=== PATIENT | female | born 1950 | race Caucasian/White ===

== ENCOUNTER 2019-12-29 09:45 | Outpatient (REF) | payer MEDICARE, SELFPAY ==
--- NOTE | 2019-12-29 | MM_ITS ---
EXAMINATION: MM DIAGNOSTIC DIGITAL BREAST TOMOSYNTHESIS, BILATERAL US DIAGNOSTIC ULTRASOUND BREAST, RIGHT CLINICAL INFORMATION: 69-year-old with lateral right breast pain for 2 to 3 weeks. No palpable mass or discharge. Prior outside mammography from [facility] currently unavailable The lifetime risk of breast cancer based on the Tyrer-Cuzick Model is 3%. COMPARISON: None. TECHNIQUE: Digital breast tomosynthesis is performed in both the craniocaudal and mediolateral oblique views along with computer-aided detection (CAD). Synthesized 2D images are generated from the tomosynthesis. Ultrasound right breast is targeted to the area of clinical concern outer right breast 6:00 through 12:00 position. Grayscale imaging and color Doppler are performed without and with harmonics. FINDINGS: The breasts are almost entirely fatty (ACR BI-RADS breast composition Category a). There is no mass or architectural abnormality. No skin thickening or coarsening of the Nahun's ligaments. There are benign-appearing regional calcifications in each breast, more numerous on the right. The axilla are unremarkable. Ultrasound demonstrates no cystic or solid mass, architectural abnormality, or focal duct ectasia. No skin thickening or edema tracking in the soft tissue planes. Results are discussed with the patient at time of visit. MM/MM diagnostic mammo BI IMPRESSION: 1. No mammographic evidence of malignancy or inflammatory changes. 2. Unremarkable targeted right breast ultrasound. ASSESSMENT: BI-RADS 2: Benign RECOMMENDATION: 1. Patient's right breast pain may be managed based on the clinical impression 2. Radiology department staff will attempt to retrieve prior outside mammography to allow for comparison in an addendum report. 3. Otherwise, routine annual screening mammography. This patient's information was entered into a reminder system with a target due date for their next mammogram.
== END 2019-12-29 09:46 | disposition home or self-care (01) ==
LOC: HO.MAMMO 09:45
PROVIDERS: PCP Internal Medicine; Visit Provider Internal Medicine
DX: N63.11 Unspecified lump in the right breast, upper outer quadrant (principal)
CPT/HCPCS: 76642; 77066

== ENCOUNTER 2023-12-25 08:08 | Outpatient (REF) | payer OTHER, SELFPAY ==
--- NOTE | ~2023-12-25 | CT_ITS ---
EXAMINATION: CT HEAD WITHOUT CONTRAST CLINICAL INFORMATION: Mild cognitive impairment COMPARISON: None available. TECHNIQUE: Contiguous axial imaging was performed from the skull base to vertex without intravenous administration of contrast. This CT examination was performed using dose optimization techniques as appropriate, variously including the following: *Automated exposure control *Adjustment of mA and/or kV according to patient size (this includes techniques or standardized protocols for targeted exams where dose is matched to indication/reason for exam; i.e. extremities or head) *Use of iterative reconstruction technique DLP: 753 mGy-cm FINDINGS: There is mild prominence to the sulci and ventricles. No intra or extra-axial fluid collection or hemorrhage, mass, or mass effect. Calvarium intact. CT/CT head/brain wo IV con IMPRESSION: No acute intracranial pathology. Electronically signed by: Nitin Garsia MD 12/25/2023 11:26 AM [facility]
== END 2023-12-25 08:09 | disposition home or self-care (01) ==
LOC: HO.CT 08:08
PROVIDERS: PCP Internal Medicine; Visit Provider Psychiatry & Neurology Neurology
DX: G31.84 Mild cognitive impairment of uncertain or unknown etiology (principal)
CPT/HCPCS: 70450

== ENCOUNTER 2024-05-29 11:13 | Outpatient (REF) | payer OTHER, SELFPAY ==
--- NOTE | ~2024-05-29 | XR_ITS ---
EXAMINATION: XR CHEST 4 OR MORE VIEWS HISTORY: PAIN COMPARISON: There are no prior studies for comparison. FINDINGS: PA, lateral, and bilateral oblique views of the chest are submitted. The lungs are expanded and clear. There is no pleural effusion, pneumothorax, or pulmonary vascular congestion. The heart is normal in size. The aorta is calcified. There is degenerative disc disease of the spine. XR/XR chest 4 views IMPRESSION: Clear lungs. Electronically signed by: Redd Porter MD 05/29/2024 02:57 PM EDT
--- OUTSIDE RECORDS SUMMARY | 2024-05-29 13:54 | XMS_ITS | Clinical Summary ---
Author Organization [facility] [address] [facility] Address [address] [place] [address] Phone Care Team Providers Care Educational Audiologist Name Role Phone Cruz Huynh MD Primary Care Provider [phone] Allergies Active Allergy Reactions Criticality Noted Date Comments Oxycodone 11/01/2016 itchy Oxycodone-Acetaminophen 09/23/2021 Medications diphenhydrAMINE (BENADRYL) 25 mg tablet Take 1 Tablet by mouth at bedtime. Active atorvastatin (LIPITOR) 40 mg tablet Take 1 Tablet by mouth at bedtime. 07/16/19 24 Active diclofenac (VOLTAREN) 1 % topical gel Apply 1 g topically 2 times daily as needed (pain). 06/15/19 24 Active metFORMIN (GLUCOPHAGE) 500 mg tablet Take 1 tablet (500 mg total) by mouth 2 (two) times a day with meals. 05/09/19 24 Active blood-glucose meter kit 1 Each by Does not apply route 2 times daily. 12/19/19 23 Active cholecalciferol (VITAMIN D-3) 50 mcg (2,000 unit) capsule Take 1 capsule (2,000 Units total) by mouth 1 (one) time each day. 06/02/19 23 Active Autolet lancing device Use daily to check blood sugar as directed 06/01/19 23 Active blood glucose control, normal (OneTouch Ultra Control) solution Use to check FSG twice a day 06/01/19 23 Active RICKY SHANKS LANCETS [facility] Use to check FSG twice a day 06/01/19 23 Active fluticasone propionate (FLONASE) 50 mcg/actuation nasal spray 1-2 Sprays by Each Nare route daily. Active aspirin 81 mg chewable tablet Chew 1 tablet (81 mg total) 1 (one) time each day. 03/21/19 19 Active coenzyme Q-10 100 mg capsule Take 200 mg by mouth daily. Active predniSONE (DELTASONE) 20 mg tablet Sig: Take 1 tablet by mouth twice daily for 5 days. Sent to pharmacy as: predniSONE 20 MG Oral Tablet (DELTASONE) Active tirzepatide (MOUNJARO) 2.5 mg/0.5 mL injection Sig - Route: Inject 2.5 mg into the skin once a week. - Subcutaneous Sent to pharmacy as: Mounjaro 2.5 MG/0.5ML Subcutaneous Solution Pen-injector (Tirzepatide) Active meloxicam (MOBIC) 15 mg tablet Sig - Route: Take 1 Tablet by mouth daily. - Oral Sent to pharmacy as: Meloxicam 15 MG Oral Tablet Active gabapentin (NEURONTIN) 300 mg capsuleIndicati ons:Fibromyalgi a,Intercostal neuropathy TAKE 1 CAPSULE BY MOUTH EVERYDAY AT BEDTIME 90 capsule 3 12/27/19 24 Active senna-docusate (PERICOLACE) 8.6-50 mg per tabletIndicatio ns:Constipation , unspecified constipation type Take 2 tablets by mouth 1 (one) time each day. 60 each 12/27/19 24 2024 Active polycarbophil (FiberCon) 625 mg tabletIndicatio ns:Constipation , unspecified constipation type Take 1 tablet (625 mg total) by mouth 1 (one) time each day. 30 each 12/27/19 24 2024 Active albuterol 2.5 mg /3 mL (0.083 %) nebulizer solution Take 3 mL (2.5 mg total) by nebulization every 6 (six) hours if needed. 06/15/19 22 Active albuterol HFA (ProAir HFA) 90 mcg/actuation inhaler 04/23/19 13 Active alendronate (FOSAMAX) 70 mg tablet alendronate 70 mg tablet Active amitriptyline (ELAVIL) 25 mg tablet 1 tablet (25 mg total). 04/16/19 13 Active amitriptyline (ELAVIL) 10 mg tablet Take 1 tablet (10 mg total) by mouth. 02/10/20 14 Active budesonide-form oteroL (SYMBICORT) 160-4.5 mcg/actuation inhaler Inhale 2 puffs by mouth 2 (two) times a day. 03/03/19 22 Active amLODIPine (NORVASC) 5 mg tablet Take 1 tablet (5 mg total) by mouth daily. 09/06/19 22 Active budesonide-form oteroL (Symbicort) 80-4.5 mcg/actuation inhaler Inhale 2 puffs by mouth 2 (two) times a day. 10/11/19 20 Active cetirizine (ZyrTEC) 10 mg tablet Take 1 tablet (10 mg total) by mouth daily. 01/05/20 22 Active ergocalciferol (VITAMIN D-2) 1,250 mcg (50,000 unit) capsule Take 1,000 Units by mouth. Active influenza trivalent, 65 years and up, (Fluzone High-Dose Triv 24-25) (PF) vaccine TO BE ADMINISTERED BY PHARMACIST FOR IMMUNIZATION 10/29/19 17 Active lovastatin (MEVACOR) 40 mg tablet Take 1 tablet (40 mg total) by mouth. 02/10/20 14 Active meclizine (ANTIVERT) 25 mg tablet Take 1 tablet (25 mg total) by mouth. 05/16/19 15 Active melatonin 5 mg tablet Take 1 tablet (5 mg total) by mouth. 10/31/19 20 Active montelukast (SINGULAIR) 10 mg tablet Take 1 tablet (10 mg total) by mouth. 12/03/19 20 Active omeprazole (PriLOSEC) [address] capsule Take 1 capsule (20 mg total) by mouth 1 (one) time each day in the morning. 01/05/20 22 Active omeprazole 20 mg tablet,disinteg rat, delay rel Take by mouth. Active ondansetron (ZOFRAN) 4 mg/5 mL solution TAKE 5ML BY MOUTH EVERY 8 HOURS NEEDED FOR NAUSEA 11/29/19 24 Active pantoprazole (PROTONIX) 40 mg EC tablet Take 1 tablet (40 mg total) by mouth 1 (one) time each day. 11/29/19 24 Active triamcinolone (KENALOG) 0.025 % cream Apply 0.25 Applications topically 2 (two) times a day. 03/27/19 24 Active triamcinolone (KENALOG) 0.1 % cream TAKE 1 APPLICATION (TOPICAL) 2 TIMES PER DAY (ITCHING) FOR 14 DAYS DO NOT USE ON GROIN OR FACE. 03/27/19 24 Active coenzyme H57-efygann E 100-5 mg-unit capsule Take 200 mg by mouth. Active blood-glucose meter kit 1 each 2 (two) times a day before meals. One touch 1 kit 1 02/15/19 25 Active ibuprofen (ADVIL,MOTRIN) 600 mg tablet TAKE 1 TABLET BY MOUTH EVERY 8 HOURS IF NEEDED FOR MILD PAIN. 90 tablet 2 03/31/19 25 Active hydrOXYzine HCL (ATARAX) 10 mg tabletIndicatio ns:Pruritus, unspecified TAKE 1 TABLET BY MOUTH THREE TIMES A DAY 90 tablet 1 03/31/19 25 Active OneTouch Ultra Test test strip Check sugar 2 times daily 100 strip 3 04/04/19 25 Active lidocaine (XYLOCAINE) 5 % ointmentIndicat ions:Chronic right-sided thoracic back pain Apply pea-sized amount 3 times a day on the back spasm area as needed for pain 35.44 g 3 04/03/19 25 Active valsartan (DIOVAN) 320 mg tabletIndicatio ns:Essential (primary) hypertension TAKE 1 TABLET BY MOUTH EVERY DAY 90 tablet 1 05/07/19 25 Active tiZANidine (ZANAFLEX) 4 mg tablet TAKE 1 TABLET (4 MG TOTAL) BY MOUTH 1 (ONE) TIME EACH DAY IF NEEDED FOR MUSCLE SPASMS. 30 tablet 1 05/29/19 25 Active valsartan (DIOVAN) 320 mg tabletIndicatio ns:Essential (primary) hypertension TAKE 1 TABLET BY MOUTH EVERY DAY 90 tablet 1 12/24/19 24 2024 Discontinued linaCLOtide (Linzess) 145 mcg capsuleIndicati ons:Slow transit constipation Take 1 capsule (145 mcg total) by mouth 1 (one) time each day. 30 each 1 03/20/19 25 2024 tiZANidine (ZANAFLEX) 4 mg tablet Take 1 tablet (4 mg total) by mouth 1 (one) time each day if needed for muscle spasms. 30 tablet 1 04/03/19 25 2024 Discontinued Active Problems Problem Noted Date Diagnosed Date 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 Hepatic steatosis 09/28/2022 Overview (11/16/2023): Incidental finding on CT abdomen pelvis done at [facility] on 09/22/2022. Chest pain 05/04/2021 Overview (11/16/2023): [facility] ER 03/14/21-03/15/21 Last Assessment & Plan: The patient has a chronic history of episodes of atypical chest discomfort. The patient describes infrequent episodes of chest discomfort that are described as a chest soreness sensation. Her symptoms last for several days per episode. She refers that her symptoms worsens with certain upper extremity movements or movements of her torso. She denies any chest pain that is induced or worsened by exertion. She denies any exertional dyspnea. She denies any exertional fatigue. On today's visit, I was able to reproduce the patient's chest discomfort with palpation of the anterior chest wall. Previous cardiac testing did not show any significant cardiac etiology to explain her episodes of chest discomfort. Specifically, her echocardiogram in February 2021 showed a normal biventricular function and no significant valve disease. Stress echocardiogram in May 2021 did not show any EKG or echocardiographic evidence of exercise-induced cardiac ischemia. Also, cardiac CT scan done in October 2021 did not show any significant coronary artery disease. As such, given the description of her symptoms as well as her previous cardiac test results, it is unlikely that the patient's episodes of chest discomfort are cardiac in nature. In fact, given the description of her symptoms it is likely that the patient's chest discomfort episodes are musculoskeletal in nature. Therefore, no need for any additional cardiac testing at this time. The patient was instructed to follow-up with her primary care physician regarding the management of her atypical episodes of chest discomfort that are likely musculoskeletal in nature. Shoulder impingement, right 02/04/2019 DM2 (diabetes mellitus, type 2) (CMS/HCC V24, CM S/HCC V28) 05/26/2015 Radiculitis, cervical 07/03/2012 Diverticulosis of colon 03/04/2010 Overview (11/16/2023): Dr. Bell, colonosocopy in 11/03/2008. Told repat in 5 years due to fhx of colon neoplasia Osteopenia 03/04/2010 Overview (11/16/2023): Bone density 03/2009 Vitamin D insufficiency 02/22/2010 Overview (11/16/2023): Bone density done in 03/2009: osteopenia Degenerative joint disease (DJD) of lumbar spine 01/05/2010 Overview (11/16/2023): MRI thoracic 09/18/2008: T6-T7 small righ paracentral herniated disc without stenosis or cord compression HTN (hypertension), benign 01/05/2010 Overview (11/16/2023): Last Assessment & Plan: The patient has a history of arterial hypertension. The patient's blood pressure today was noted to be well controlled. We'll continue the current antihypertensive medication regimen. Hyperlipidemia with target LDL less than 130 Overview (11/16/2023): IMO update Knee pain 01/05/2010 Encounters Date Type Department Care Team Description 04/03/2024 3:00 PM EST Office Visit Internal Medicine - [place] [address] [facility] [address] [place] [id number] Cruz Huynh MD Chronic right-sided thoracic back pain (Primary Dx) 03/27/2024 Telephone Gastroenterology - [address] [place] [phone] Bertha Youngblood, [employer] Information Needed 03/21/2024 Telephone Gastroenterology - [address] [address] Drew Juan MD 03/20/2024 Telephone Gastroenterology - [address] [place] [address] Drew Juan MD 03/06/2024 2:40 PM EST Office Visit Gastroenterology - [address] [place] [address] Bertha Youngblood, [employer] Slow transit constipation (Primary Dx); Right upper quadrant abdominal pain from Last 3 Months Immunizations Name Administration Dates Next Due Influenza Quadravalent, 0.5m l (Fluad) 65yo and older 10/11/2022 Influenza Quadravalent, 0.5m l (Fluzone High-dose) 65yo and older 11/04/2021 Influenza trivalent, 0.5mL ( Fluad) 65yo and older 10/07/2018 Influenza trivalent, 0.5mL ( Fluzone High-dose) 65yo and older 11/15/2023,11/20/2017,10/28/2016,10/25 Influenza trivalent, with pr eservative (Fluzone; Afluria) 6mo and older 11/23/2009,11/05/2009 Influenza, Unspecified 10/22/2022,10/07/2018 Pneumococcal conjugate 13 va lent (Prevnar 13, PCV13) 2mo and older 10/06/2015 Pneumococcal polysaccharide 23 valent (Pneumovax 23) 2yo and older 12/06/2016 Tdap Tetanus diptheria acell ular pertussis (Boostrix; Adacel) 7yo and older 01/21/2019 Surgical History Surgery Date Site/Laterality Comments BREAST REDUCTION PROCEDURE: MD BREAST REDUCTION KNEE SURGERY PROCEDURE: HISTORICAL KNEE SURGERY; COMMENT: bilateral - cartilage injury BACK SURGERY 2007 PROCEDURE: HISTORICAL BACK SURGERY; COMMENT: fusion SHOULDER SURGERY 2001 PROCEDURE: HISTORICAL SHOULDER SURGERY; COMMENT: left - cuff repair SHOULDER SURGERY 03/23/2017 Right PROCEDURE: HISTORICAL SHOULDER SURGERY Medical History Medical History Date Comments HTN (hypertension), benign DX:HT N (hypertension), benign Historical Medical DX DX:Hyperli pidemia LDL goal < 130 Back pain 01/05/2010 DX:Back pain Diverticulosis of colon 03/04/2010 DX:Diver ticulosis of colon Impaired glucose tolerance 03/04/2010 DX:Im paired glucose tolerance Knee pain 01/05/2010 DX:Knee pain Osteopenia 03/04/2010 DX:Osteopenia DM (diabetes mellitus), type 2, uncontrolled 05/26/2015 DX:DM (diabetes mellitus), t ype 2, uncontrolled DM2 (diabetes mellitus, type 2) ([facility] V24, [facility] V28) 05/26/2015 DX:DM2 (diabetes mellitus, type 2) ([facility]) Mild intermittent asthma 02/13/2019 DX:Mild intermittent asthma Osteoporosis DX:Osteoporosis 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 DX:DJD of right shoulder Family History Medical History Relation Name Comments Autoimmune disease Neg Hx Breast cancer Neg Hx Colon cancer Neg Hx Coronary artery disease Neg Hx Diabetes Neg Hx Heart attack Neg Hx Heart failure Neg Hx Hyperlipidemia Neg Hx Hypertension Neg Hx Mental illness Neg Hx Prostate cancer Neg Hx Sleep apnea Neg Hx Thyroid disease Neg Hx Relation Name Status Comments Father Mother Alive unknown health Social History Tobacco Use Types Packs/Day Years Used Date Smoking Tobacco: Never Smokeless Tobacco: Never Alcohol Use Standard Drinks/Week Comments Not Currently 0 (1 standard drink = 0.6 oz pur e alcohol) Comments Unknown Sex and Gender Information Value Date Recorded Sex Assigned at Female 12/12/2023 3:18 PM EDT Legal Sex Female 3:57 AM EST Gender Identity Female 12/12/2023 3:18 PM EDT Sexual Orientation Straight 12/12/2023 3: 18 PM EDT Obstetrics History Last Filed Vital Signs Vital Sign Reading Time Taken Comments Blood Pressure 122/72 04/03/2024 3:09 PM EST Pulse 90 04/03/2024 3:09 PM EST Temperature 36.3 ??C (97.3 ??F) 04/03/2024 3:09 PM ES T Respiratory Rate - - Oxygen Saturation 98% 04/03/2024 3:09 PM EST Inhaled Oxygen Concentration - - Weight 66.5 kg (146 lb 9.6 oz) 04/03/2024 3:09 P M EST Height 152.4 cm (5') 03/06/2024 2:37 PM EST Body Mass Index 28.63 03/06/2024 2:37 PM EST Plan of Treatment Health Maintenance Due Date Last Done Comments Diabetes: Annual Retina Eye Exam 1960 Zoster Vaccines (1 of 2) 2000 RSV Immunization Adult Patients (1 - Risk 60-74 years 1-dose series) 2010 Depression Screening 01/21/2022 Falls Risk Assessment 01/21/2022 Social Influencers of Health Screening 01/21/2022 Diabetes: Annual Urine Albumin-Creatinine Ratio (uACR) 06/01/2023 05/31/2022 Medicare Annual Wellness Visit 08/31/2023 08/30/2022 COVID-19 Vaccine ( season) 2023 02/23/2021, 05/06/2020, 04/08/2020 Diabetes: Annual Foot Exam 03/21/2024 03/21/2023 Diabetes: Blood Sugar Control Test (HGBA1C) 05/08/2024 11/09/2023, 11/09/2023, 06/15/2023 Colorectal Cancer Screening: Colonoscopy 09/07/2024 09/08/2019 Diabetes: Annual GFR (Glomerular Filtration Rate) 11/08/2024 11/09/2023, 11/09/2023, 06/15/2023 Hypertension/CHF/CAD Annual BMP Blood Test 11/08/2024 11/09/2023, 11/09/2023, 06/15/2023 Breast Cancer Screening 08/08/2025 08/09/19 24, 07/19/2022, 2021, Additional history exists Cholesterol Screening (Lipid Panel) 11/08/2028 11/09/2023, 11/09/2023, 06/15/2023, Additional history exists DTaP,Tdap,and Td Vaccines (2 - Td or Tdap) 01/21/2029 01/21/2019 Osteoporosis Screening (Bone Density Screening) 08/08/2033 08/09/2023, 08/09/2023, 01/25/2021 Hepatitis C Screening Completed 01/01/2016 Pneumococcal Vaccine: 50+ Years Completed 12/06/2016, 10/06/2015 Influenza Vaccine Completed 11/15/2023, , 10/11/2022, Additional history exists HIB Vaccines Aged Out No longer eligi ble based on patient's age to complete this topic HPV Vaccines Aged Out No longer eligi ble based on patient's age to complete this topic Hepatitis A Vaccines Aged Out No long er eligible based on patient's age to complete this topic Hepatitis B Vaccines Aged Out No long er eligible based on patient's age to complete this topic IPV Vaccines Aged Out No longer eligi ble based on patient's age to complete this topic MMR Vaccines Aged Out No longer eligi ble based on patient's age to complete this topic Meningococcal ACWY Vaccine Aged Out N o longer eligible based on patient's age to complete this topic Meningococcal B Vaccine Aged Out No l onger eligible based on patient's age to complete this topic RSV Immunization Patients Under 20 months Aged Out No longer eligible based on patient's age to complete this topic Varicella Vaccines Aged Out No longer eligible based on patient's age to complete this topic Procedures Procedure Name Priority Date/Time Associated Diagnosis Comments ANNUAL BMP BLOOD TEST Routine 11/09/2023 HEMOGLOBIN A1C Routine 11/09/2023 LIPID PANEL Routine 11/09/2023 [facility] SCREENING DIGITAL Routine 08/09/2023 10:10 AM EDT Encounter for screening mammogram for malignant neoplasm of breast [facility] DEXA AXIAL SKELETON Routine 08/09/2023 9:58 AM EDT Other specified disorders of bone density and structure, other site DIABETES FOOT EXAM Routine 03/21/2023 URINE ALBUMIN CREATININE RATIO Routine 05/31/2022 COLONOSCOPY Routine 09/08/2019 HEPATITIS C SCREENING Routine 01/01/2016 from Last 3 Months or Most Recently Relevant to Health Maintenance Results * Annual BMP Blood Test (11/09/2023) Annual BMP Blood Test abstracted us Historical Provider HEALTH MAINTENANCE Final Result * (ABNORMAL) Hemoglobin A1c (11/09/2023) Hemoglobin A1C 6.7(A) <=6.5 % Blood Venous blood specimen / Unknown us Historical Provider LAB BLOOD ORDERABLES Madhavi l Result * Lipid panel (11/09/2023) LDL/HDL Ratio 3 0 - 4 Triglycerides 146 0 - 150 mg/dL Cholesterol 189 0 - 200 mg/dL HDL 61 >=40 mg/dL LDL Cholesterol 99 0 - 100 mg/dL Blood Venous blood specimen / Unknown us Historical Provider LAB BLOOD ORDERABLES Madhavi louis Result * [facility] SCREENING DIGITAL (08/09/2023 10:10 AM EDT) Anatomical Region Laterality Modality Mammography 08/09/2023 8:24 AM EDT Narrative 08/09/2023 10:10 AM EDT [facility] Diagnostic Imaging Department [address] [place] [address] Patient: ??SAMANTHA MCKINLEY ?/Age/Sex: 1950 - 73 - F Unit#: ??[id number] ? Location/Status: ??SPDIMAM/REG CLI ? Mnemonic/Ordering Site: ??DIGSC/SPMAM Ordering Physician: ??CRUZ HUYNH MD [facility] Screening Digital - 08/09/23 - 839 Report Status:Signed EXAM: [facility] Screening Digital EXAM DATE AND TIME: 08/09/2023 8:41 AM HISTORY: ??Screening. Prior left breast biopsy and bilateral reduction mammoplasty. COMPARISON: ??07/19/22, 03/02/21, 08/21/18 TECHNIQUE: Bilateral digital breast tomosynthesis was performed in the CC and MLO projections. Computer aided detection with [employer] 3D 3.1 was employed. TISSUE DENSITY: a. The breasts are almost entirely fatty. FINDINGS: Reduction mammoplasty sequelae are again noted, including numerous small benign rim calcifications close to the skin line inferiorly. No suspicious masses, grouped microcalcifications, or developing architectural distortion are seen. The vascularity is unremarkable. IMPRESSION: Stable mammographic appearance of the breasts. ??No evidence of malignancy is seen. A negative mammogram in the presence of a clinically suspicious palpable abnormality does not preclude the possibility of malignancy or alter the indications for biopsy. BI-RADS: ??Category 2: Benign RECOMMENDATION(S): 1: Routine screening mammogram BILATERAL in 1 year. Dictating Physician: ??CYN BAPTISTE MD Electronically Signed by: ??CYN BAPTISTE MD Dic Date/Time: ??08/09/23 1009 Sign date/Time: ??08/09/23 1010 Procedure Note Cyn Baptiste MD - 11/28/2023 [facility] Diagnostic Imaging Department [address] [place] [id number] Patient: SAMANTHA MCKINLEYO.B./Age/Sex: 1950 - 73 - F Unit#: [id number] Location/Status: [facility]/REG CLI Mnemonic/Ordering Site: [facility] Ordering Physician: CRUZ HUYNH MD [facility] Screening Digital - 08/09/23 - 0840 Report Status:Signed EXAM: [facility] Screening Digital EXAM DATE AND TIME: 08/09/2023 8:41 AM HISTORY: Screening. Prior left breast biopsy and bilateral reduction mammoplasty. COMPARISON: 07/19/22, 03/02/21, 08/21/18 TECHNIQUE: Bilateral digital breast tomosynthesis was performed in the CCand MLO projections. Computer aided detection with [employer] 3D 3.1was employed. TISSUE DENSITY: a. The breasts are almost entirely fatty. FINDINGS: Reduction mammoplasty sequelae are again noted, including numerous smallbenign rim calcifications close to the skin line inferiorly. No suspiciousmasses, grouped microcalcifications, or developing architectural distortion areseen. The vascularity is unremarkable. IMPRESSION: Stable mammographic appearance of the breasts. No evidence of malignancyis seen. A negative mammogram in the presence of a clinically suspicious palpable abnormality does not preclude the possibility of malignancy or alter the indications for biopsy. BI-RADS: Category 2: Benign RECOMMENDATION(S): 1: Routine screening mammogram BILATERAL in 1 year. Dictating Physician: CYN BAPTISTE MD Electronically Signed by: CYN BAPTISTE MD Dic Date/Time: 08/09/23 1009 Sign date/Time: 08/09/23 1010 us Cruz Huynh MD IMG BI PROCEDURES Final Result * [facility] DEXA AXIAL SKELETON (08/09/2023 9:58 AM EDT) Anatomical Region Laterality Modality Mammography 08/09/2023 8:24 AM EDT Narrative 08/09/2023 9:58 AM EDT [facility] Diagnostic Imaging Department [address] [place], [place] [id number] Patient: ??SAMANTHA MCKINLEY ?/Age/Sex: 1950 - 73 - F Unit#: ??[id number] ? Location/Status: ??SPDIMAM/REG CLI ? Mnemonic/Ordering Site: ??MAMDEXAAX/SPMAM Ordering Physician: ??CRUZ HUYNH MD [facility] Axial Skeleton - 08/09/23910 Report Status:Signed HISTORY: ??The patient is a 73-year-old postmenopausal female with clinical concern for metabolic bone disease. FINDINGS: ??Dual energy x-ray absorptiometry of the lumbar spine and femurs is performed. The mean bone mineral density at L1-2 is 1.117 gm/cm2 which is 96% of that of young normals and 114% of that of age matched controls. This yields a T- score of -0.4 and a Z-score of 1.1 and there is therefore no evidence of osteoporosis or osteopenia here. The mean bone mineral density of the femurs bilaterally is 0.876 gm/cm2 which is 87% of that of young normals and 107% of that of age matched controls. ??This yields a T-score of -1.0 and a Z-score of 0.5 and there is therefore no evidence of osteoporosis or osteopenia here. ??However, the T-score of the right femoral neck is -2.1 and that of the left femoral neck is -2.0 which is diagnostic of osteopenia. IMPRESSION: 1. Osteopenia. ??There has been a decrease of 1.0% in bone mineral density in the lumbar spine since the prior examination of 01/25/2021. ??There has been a decrease of 1.4% in bone mineral density in the right femur and a decrease of 4.8% in bone mineral density in the left femur. 2. FRAX analysis yields a 10-year probability of major osteoporotic fracture of 11.3% and a 10-year probability of hip fracture of 2.5%. Code 86969 Dictating Physician: ??NOLAN HERRERA MD Electronically Signed by: ??NOLAN HERRERA MD Dic Date/Time: ??08/09/2356 Sign date/Time: ??08/09/23957 Procedure Note Nolan Herrera MD - 11/28/2023 [facility] Diagnostic Imaging Department [address] [place], [place] [id number] Patient: DOMINICKSAMANTHA D.O.B./Age/Sex: 1950 - 73 - F Unit#: [id number] [facility] Ordering Physician: CRUZ HUYNH MD [facility] Dexa Axial Skeleton - 08/09/23 - 910 Report Status:Signed HISTORY: The patient is a 73-year-old postmenopausal female withclinical concern for metabolic bone disease. FINDINGS: Dual energy x-ray absorptiometry of the lumbar spine and femursis performed. The mean bone mineral density at L1-2 is 1.117 gm/cm2 which is96% of that of young normals and 114% of that of age matched controls. Thisyields a T- score of -0.4 and a Z-score of 1.1 and there is therefore no evidence of osteoporosis or osteopenia here. The mean bone mineral density of the femurs bilaterally is 0.876 gm/bc7yzwfc is 87% of that of young normals and 107% of that of age matched controls.This yields a T-score of -1.0 and a Z-score of 0.5 and there is therefore noevidence of osteoporosis or osteopenia here. However, the T-score of the rightfemoral neck is -2.1 and that of the left femoral neck is -2.0 which is diagnosticof osteopenia. IMPRESSION: 1. Osteopenia. There has been a decrease of 1.0% in bone mineral densityin the lumbar spine since the prior examination of 01/25/2021. There hasbeen a decrease of 1.4% in bone mineral density in the right femur and a decreaseof 4.8% in bone mineral density in the left femur. 2. FRAX analysis yields a 10-year probability of major osteoporoticfracture of 11.3% and a 10-year probability of hip fracture of 2.5%. Code 71170 Dictating Physician: NOLAN HERRERA MD Electronically Signed by: NOLAN HERRERA MD Dic Date/Time: 08/09/23 0956 Sign date/Time: 08/09/23 0958 Result [facility] Cruz Huynh MD IMG BI PROCEDURES Final Result * Diabetes Foot Exam (03/21/2023) [facility] Diabetes: Annual Foot Exam abstracted Result [facility] HEALTH MAINTENANCE Final Result * Urine Albumin Creatinine Ratio (05/31/2022) [facility] Urine Albumin Creatinine Ratio abstracted Result [facility] Sarah [facility] Final Result * Colonoscopy (09/08/2019) [facility] Colonoscopy no interpretation , abstracted Anatomical Region Laterality Modality Other Result [facility] Sarah [facility] Final Result * Hepatitis C Screening (01/01/2016) [facility] Hepatitis C Screening abstracted Result [facility] [facility]IN[facility] Final Result from Last 3 Months or Most Recently Relevant to Health Maintenance Insurance [facility] MEDICARE Member Subscriber Plan / Payer (Ef fective 2023-Present) Name:Samantha Mckinley Relation to Subscriber:Self Name:Samantha Mckinley Payer ID:[id number] Group ID:[id number] Type:Not on file Address: [place] [address] [address] [id number] Care Teams Educational Audiologist Relationship Specialty Start Date End Date Cruz Huynh MD [address] [address] PCP - General 05/09/23
--- OUTSIDE RECORDS SUMMARY | 2024-05-29 13:54 | XMS_ITS | Clinical Summary ---
Author Organization [employer] Address [address] [place] [address] Care Team Providers Care Manufacturing Operations Manager Name Role Phone Unavailable Primary Care Provider Unavailabl e Allergies Active Allergy Reactions Criticality Noted Date Comments Oxycodone Itching 11/01/2016 itchy itchy Oxycodone-Acetaminophen 09/23/2021 Medications calcium citrate-vitamin D 157.5-125 mg-unit tablet per split tablet Take 2 tablets by mouth. 02/10/20 14 Active cyclobenzaprine (Flexeril) 10 MG tablet Flexeril Active albuterol (2.5 MG/3ML) 0.083% nebulizer solution USE 1 VIAL VIA NEBULIZER EVERY 6 HOURS NEEDED 06/15/19 22 Active amLODIPine (Norvasc) 5 MG tablet Take 5 mg by mouth in the morning. 11/26/19 22 Active budesonide-formoterol (Symbicort) 160-4.5 MCG/ACT inhaler TAKE 2 PUFFS BY MOUTH TWICE A DAY IN THE MORNING AND IN THE EVENING 03/03/19 22 Active cetirizine (ZyrTEC) 10 MG tablet Take 10 mg by mouth in the morning. 01/05/20 22 Active fluticasone (Flonase) 50 MCG/ACT nasal spray SPRAY 1 - 2 SPRAY BY INTRANASAL ROUTE EVERY DAY IN EACH NOSTRIL NEEDED 04/23/19 22 Active OneTouch Verio test strip USE 1 STRIP 3 TIMES EVERY DAY 03/07/19 22 Active ibuprofen 600 MG tablet TAKE 1 TABLET BY MOUTH THREE TIMES A DAY WITH FOOD NEEDED 10/12/19 22 Active metFORMIN XR (Glucophage-XR) 500 MG 24 hr tablet TAKE 2 TABLETS BY MOUTH EVERY DAY WITH THE EVENING MEAL 01/20/20 22 Active omeprazole (PriLOSEC) [address] capsule TAKE 1 CAPSULE BY MOUTH EVERY DAY IN THE MORNING 01/05/20 Active valsartan (Diovan) 320 MG tablet Take 320 mg by mouth in the morning. 09/30/19 22 Active atorvastatin (Lipitor) 40 MG tabletIndications:Mix ed hyperglyceridemia Take 1 tablet (40 mg) by mouth in the morning. 90 tablet 1 02/14/19 23 Active Aspirin Low Dose 81 MG EC tabletIndications:Vanessa ritesh hypertension Take 1 tablet (81 mg) by mouth in the morning. 30 tablet 1 03/03/19 23 Active Active Problems No known active problems Social History Tobacco Use Types Packs/Day Years Used Date Smoking Tobacco: Never Assessed Comments Unknown Sex and Gender Information Value Date Recorded Sex Assigned at Female 12/12/2021 10:36 AM EDT Legal Sex Female 10:36 AM EDT Gender Identity Female 12/12/2021 10:36 AM EDT Sexual Orientation Straight 12/12/2021 10 :36 AM EDT Last Filed Vital Signs Vital Sign Reading Time Taken Comments Blood Pressure 102/74 01/13/2022 1:59 PM EST Pulse 88 01/13/2022 1:59 PM EST Temperature 37.1 ??C (98.7 ??F) 01/13/2022 1:59 PM ES T Respiratory Rate 16 01/13/2022 1:59 PM EST Oxygen Saturation - - Inhaled Oxygen Concentration - - Weight 73 kg (161 lb) 01/13/2022 1:59 PM EST Height 154.9 cm (5' 1 ) 01/13/2022 1:59 PM EST Body Mass Index 30.42 01/13/2022 1:59 PM EST Plan of Treatment Health Maintenance Due Date Last Done Comments CT Colonography 1950 Colonoscopy 1950 Colorectal Cancer Screening 1950 Depression Screening 1950 FIT DNA/Cologuard 1950 FIT 1950 FOBT 1950 SDOH Screening 1950 Sigmoidoscopy 1950 Alcohol/Substance Use Screening 1962 Tobacco Screening 1962 Hepatitis C Screening 1968 Zoster Vaccines (1 of 2) 2000 RSV Patients and Patients Aged 60 years or older (1 - Risk 60-74 years 1-dose series) 2010 Mammogram 12/28/2021 12/29/2019, 12/13, 12/29/2019 COVID-19 Vaccine (4 - season) 2023 02/23/2021, 05/06/2020, 04/08/2020 Influenza Vaccine (#1) 2023 3, 11/04/2021, 10/07/2018, Additional history exists Lipid Panel 04/19/2026 04/19/2021, 12/15/2019 DTaP/Tdap/Td Vaccines (2 - Td or Tdap) 01/21/2029 01/21/2019 Pneumococcal Vaccine: 50+ Years Completed 12/06/2016, 10/06/2015 HIB Vaccines Aged Out No longer eligi [...] patient's age to complete this topic Meningococcal Vaccine Aged Out No renee carol eligible based on patient's age to complete this topic RSV under 20 months Aged Out No longe r eligible based on patient's age to complete this topic Rotavirus Vaccines Aged Out No longer eligible based on patient's age to complete this topic Procedures Procedure Name Priority Date/Time Associated Diagnosis Comments LIPID PANEL, STANDARD Routine 04/19/2021 10:32 AM EST MAMMOGRAM GENERIC Routine 12/29/2019 10: 25 AM EST from Last 3 Months or Most Recently Relevant to Health Maintenance Results * (ABNORMAL) LIPID PANEL, STANDARD (04/19/2021 10:32 AM EST) Chol/HDLC Ratio 3.7 <5.0 (calc) [facility] Cholesterol, Total 168 <200 mg/dL [facility] HDL Cholesterol 46(L) > OR = 50 mg/dL [facility] LDL Cholesterol 85 mg/dL (calc) [facility] Comment: Reference range: <100 ?? Desirable range <100 mg/dL for primary prevention; ?? <70 mg/dL for patients with CHD or diabetic patients ?? with > or = 2 CHD risk factors. ?? LDL-C is now calculated using the Rodrigo ?? calculation, which is a validated novel method providing ?? better accuracy than the Friedewald equation in the ?? estimation of LDL-C. ?? Albert AL et al. KEITH. 2013;310(19): 4949-9186 ?? (http://[employer].Coderwall/faq/SLB492) Non-HDL Cholesterol 122 <130 mg/dL (calc) [facility] Comment: For patients with diabetes plus 1 major ASCVD risk ?? factor, treating to a non-HDL-C goal of <100 mg/dL ?? (LDL-C of <70 mg/dL) is considered a therapeutic ?? option. Triglycerides 283(H) <150 mg/dL [facility] Comment: ?? If a non-fasting specimen was collected, consider repeat triglyceride testing on a fasting specimen if clinically indicated. ?? Caterina et al. J. of Clin. Lipidol. 2015;9:129-169. ?? 04/19/2021 10:3 2 AM EST Garret Pierce MD LAB BLOOD ORDERABL ES Final Result [facility] [address] * Mammography Report 1 (12/29/2019 10:25 AM EST) Anatomical Region Laterality Modality Breast Bilateral Mammography 12/29/2019 10:2 5 AM EST Narrative 12/28/2020 12:36 AM EST Refer to the Notes tab for result details [facility] Procedure: Mammography Report 1 Procedure Note ProviderRayshawn MD - 05/06/2022 Refer to the Notes tab for result details [facility] Procedure: Mammography Report 1 Garret Pierce MD IMG BI PROCEDURES Final Result from Last 3 Months or Most Recently Relevant to Health Maintenance Insurance DUAL COMPLETE
--- OUTSIDE RECORDS SUMMARY | 2024-05-29 13:54 | XMS_ITS | Encounter Summary ---
Author Organization [employer] Address [address] [place] [address] [address] [place] [address] Care Team Providers Care Pharmaceutical Service Representative Name Role Phone Unavailable Primary Care Provider Unavailabl e Reason for Visit * Reason Comments Med Refill Encounter Details Date Type Department Care Team ([facility] st Contact Info) Description 04/24/2022 Refill [facility] [address] [place] [address] Candie Carmen MD [address] [place] [address] Social History Tobacco Use Types Packs/Day Years Used Date Smoking Tobacco: Never Assessed Comments Unknown Sex and Gender Information Value Date Recorded Sex Assigned at Female 12/12/2021 10:36 AM EDT Legal Sex Female 10:36 AM EDT Gender Identity Female 12/12/2021 10:36 AM EDT Sexual Orientation Straight 12/12/2021 10 :36 AM EDT documented as of this encounter Plan of Treatment Not on file documented as of this encounter Visit Diagnoses Not on filedocumented in this encounter
--- OUTSIDE RECORDS SUMMARY | 2024-05-29 13:54 | XMS_ITS ---
Author Name [facility] Organization Unknown History of Medication Use Medication Directions Dispensed Refills Start Date End Date [facility] valsartan 320 mg tablet TAKE 1 TABLET BY MOUTH EVERY DAY active naproxen 500 mg tablet TAKE 1 TABLET BY MOUTH TWICE A DAY FOR 30 DAYS active Tussin DM 10 mg-100 mg/5 mL oral syrup TAKE 10ml BY MOUTH EVERY 4 HOURS NEEDED active benzonatate 200 mg capsule TAKE 1 CAPSULE BY MOUTH 3 TIMES A DAY FOR 7 DAYS NEEDED FOR COUGH active cetirizine 10 mg tablet TAKE 1 TABLET BY MOUTH EVERY DAY active hydroxyzine HCl 25 mg tablet TAKE 1 TABLET (ORAL) 3 TO 4 TIMES PER DAY (ITCHING) FOR 5 DAYS active tobramycin 0.3 %-dexamethasone 0.1 % eye drops,suspension INSTILL 1 DROP INTO BOTH EYES 4 TIMES A DAY active ibuprofen 600 mg tablet TAKE 1 TABLET BY MOUTH THREE TIMES A DAY NEEDED active metformin ER 500 mg tablet,extended release 24 hr TAKE 2 TABLETS BY MOUTH EVERY DAY WITH THE EVENING MEAL active omeprazole 20 mg capsule,delayed release TAKE 1 CAPSULE BY MOUTH EVERY DAY IN THE MORNING active cyclobenzaprine 10 mg tablet TAKE 1 TABLET BY MOUTH THREE TIMES A DAY NEEDED active Problems Problem Status Onset Date Problem Type Date of Resoluti on Source Osteoarthritis of left knee joint active 2023-06-22 ProblemAct [facility]ONECT Osteoarthritis of right glenohumeral joint active 2023-10-11 ProblemAct [facility]EC T Encounters Encounter Type Encounter Reason Primary Diagnosis Location Date Ambulatory [facility] 09/20/2023 Ambulatory [facility] 09/20/2023 Ambulatory [facility] 09/20/2023 Ambulatory [facility] 09/20/2023 Ambulatory [facility] 09/18/2023 Ambulatory [facility] 06/25/2023 Ambulatory [facility] 06/22/2023 Ambulatory [facility] 06/28/2022 [facility] 06/28/2022 Ambulatory [facility] 06/27/2022 Ambulatory [facility] 06/13/2022
--- OUTSIDE RECORDS SUMMARY | 2024-05-29 13:55 | XMS_ITS | Clinical Summary ---
Author Organization [facility] Address [address] [place] [id number] Care Team Providers Care Promotion Writer Name Role Phone Philomena De Primary Care Provider [phone] Allergies Active Allergy Reactions Criticality Noted Date Comments Oxycodone 11/01/2016 itchy Oxycodone-Acetaminophen Medications Medication Sig Dispensed Refills Start Date End Date Status valsartan (DIOVAN) tablet 160 mg Take 160 mg by mouth daily. 0 10/24/2016 Active FLUZONE HIGH-DOSE 0.5 ML ANTONIA TO BE ADMINISTERED BY PHARMACIST FOR IMMUNIZATION 0 10/28/2016 Active amitriptyline (ELAVIL) tablet 25 mg 1 tablet. 0 04/15/2012 Active atorvastatin (LIPITOR) tablet 40 mg TAKE 1 TAB BY MOUTH DAILY. 0 12/18/2016 Active Coenzyme Q10 (CO Q 10) 100 MG CAPS Take 200 mg by mouth. 0 Active cyclobenzaprine (FLEXERIL) 10 MG tablet Take 10 mg by mouth. 0 11/16/2016 Acti ve lidocaine (LIDODERM) 5 % Place 1-3 patches onto the skin. 0 11/16/2016 Active metFORMIN (GLUCOPHAGE) tablet 500 mg Take 500 mg by mouth. 0 08/31/2016 Act dianna albuterol (VENTOLIN HFA) 108 (90 BASE) MCG/ACT inhaler 2 puffs. 0 04/22/2012 Active ergocalciferol (VITAMIN D2) capsule 75239 units Take 1,000 Units by mouth. 0 Active valsartan (DIOVAN) tablet 160 mg Take one tablet by mouth daily 0 10/24/2016 Active Cyclobenzaprine HCl (FLEXERIL PO) Flexeril 0 Active ibuprofen (ADVIL,MOTRIN) 600 MG tablet 0 01/21/2019 Active PROAIR HFA 108 (90 Base) MCG/ACT inhaler 0 01/01/2019 Active alendronate (FOSAMAX) tablet 70 mg alendronate 70 mg tablet 0 Active ASPIRIN ADULT LOW STRENGTH 81 MG EC tablet Take 81 mg by mouth daily. 0 11/18/2019 Active SYMBICORT 80-4.5 MCG/ACT inhaler TAKE 2 PUFFS BY MOUTH TWICE A DAY IN THE MORNING AND IN THE EVENING 0 10/11/2019 Active Melatonin 5 MG TABS Take 1 tablet by mouth every night at bedtime. 0 10/31/2019 Active montelukast (SINGULAIR) 10 MG tablet Take 10 mg by mouth every evening. 0 12/03/2019 Active amLODIPine (NORVASC) tablet 5 mg Take 5 mg by mouth daily. 0 09/05/2021 Active Diclofenac Sodium 1 % GEL Apply topically. 0 Active Omeprazole 20 MG TBDD Take by mouth. 0 Active Active Problems Problem Noted Date Diagnosed Date Shoulder impingement, right 02/04/2019 Social History Tobacco Use Types Packs/Day Years Used Date Smoking Tobacco: Never Assessed Sex and Gender Information Value Date Recorded Sex Assigned at Not on file Gender Identity Not on file Sexual Orientation Not on file Job Start Date Occupation Industry Not on file Not on file Not on file Plan of Treatment Health Maintenance Due Date Last Done Comments Hepatitis C Screening 1950 COVID-19 Vaccine (#1) 1950 Depression Screening 1962 Preventative Health Evaluation 1968 DTap / Tdap / Td (1 - Tdap) 1969 Colon Cancer Screening (Colonoscopy) 1995 Breast Cancer Screening (Mammogram) 2000 Shingrix-Zoster Vaccine (1 o f 2) 2000 Fall Risk Assessment 2015 Osteoporosis Screening (DEXA Scan) 2015 Influenza Vaccine (#1) 2023 11/05/2009 RSV Adult > 60+ Yrs or (1 - 1-dose 75+ series) 2025 Pneumococcal Vaccine Completed 12/06/2016, 10/06/2015 Hepatitis B Vaccines Aged Out No long er eligible based on patient's age to complete this topic RSV Ped < 20 months Aged Out No longe r eligible based on patient's age to complete this topic Care Teams Promotion Writer Relationship Specialty Start Date End Date Philomena De DO [address] [id number] PCP - General Family Medicine 02/04/19
== END 2024-05-29 11:14 | disposition home or self-care (01) ==
LOC: HO.XRAY 11:13
PROVIDERS: Visit Provider Psychiatry & Neurology Neurology
DX: R07.9 Chest pain, unspecified (principal)
CPT/HCPCS: 71048

== ENCOUNTER → 2024-05-29 11:25 | Outpatient (BNV) | payer OTHER, SELFPAY | PROVIDERS: Visit Provider Radiology Diagnostic Radiology | DX: I70.0 Atherosclerosis of aorta (principal) | CPT/HCPCS: 71048 ==

== ENCOUNTER 2024-09-30 15:16 | Outpatient (AMB) | payer OTHER, SELFPAY ==
--- NOTE | 2024-09-30 15:23 | A.OFFVIS_ITS ---
Intake Visit Reasons: 6 Months Allergies No Known Allergies Allergy (Verified 09/30/24 15:51) Medication List - Last Reconciled 09/30/24 by Philomena Whitehead CNP aspirin 81 mg PO DAILY donepezil 10 mg PO DAILY gabapentin 300 mg PO BEDTIME metformin 500 mg PO BID HPI Comments Details: 74-year-old woman with diabetes, hypertension, and MCI. She began with short- term memory problems around 2022. She has education up to grade 6. She worked in [employer] and retired at the age of 68. She lives downstairs from her daughter and her daughter manages her finances. She could be forgetful and misplace things. She was doing okay. Memory was stable. She was taking donepezil, no medication side effects. She was driving locally without issue. She still had some pain to R lower posterior rib area which has been ongoing for years, CXR showed some degenerative disc disease in spine. She had L ankle injections, but she did not notice much difference. She was walking with cane, no falls. Mood was okay. Sleep was generally okay. [facility] Medical History (Updated 09/30/24 @ 15:33 by Philomena Whitehead CNP) MCI (mild cognitive impairment) Review of Systems Const Denies chills, Denies daytime sleepiness, Denies difficulty sleeping, Denies fatigue, Denies fever(s), Denies frequent falls, Denies headache(s), Denies increased appetite, Denies poor appetite, Denies snoring, Denies weakness, Denies weight gain and Denies weight loss Eyes Denies loss of vision ENT Denies vertigo, Denies dizziness, Denies headache(s) and Denies neck pain Card Denies chest pain at rest, Denies chest pain with activity, Denies syncope, Denies leg edema, Denies palpitations, Denies dyspnea and Denies dyspnea on exertion Resp Denies cough, Denies dyspnea, Denies dyspnea on exertion and Denies snoring GI Denies abdominal pain, Denies constipation, Denies heartburn, Denies diarrhea and Denies nausea Denies urinary frequency, Denies urinary incontinence and Denies urinary urgency Musc Denies abnormal gait, Denies back pain, Denies myalgias, Reports arthralgias, Denies neck pain, Denies numbness and Denies tingling Neuro Denies abnormal gait, Denies vertigo, Denies dizziness, Denies syncope, Denies frequent falls, Denies headache(s), Denies lack of coordination, Denies loss of vision, Reports memory loss, Denies numbness, Denies Other visual disturbances, Denies restless legs, Denies seizure-like activity, Denies tingling, Denies paresthesias, Denies tremor(s) and Denies weakness Psych Denies anxiety, Denies depression, Denies auditory hallucinations, Reports memory loss and Denies visual hallucinations Endo Denies fatigue and Denies palpitations Physical Exam Const Other: General Appearance:? normal, in no acute distress. Heart:? S1, S2 normal, no murmurs. Lungs:? clear anteriorly and posteriorly. Musculoskeletal:? normal. Extremities:? no edema. Psych:? alert, as below. Neuro Other: Abnormal Neurological Findings:?MMSE 24/30. Walking with cane.? Mental Status: alert, as below. Cranial Nerves: Pupils are equal, round, and reactive to light. External ocular muscles are intact. Visual fair are full, no ptosis. Face is symmetrical, no facial weakness or droop. Facial sensations are normal. Tongue protrudes in midline. Palate elevates symmetrically. Shoulder shrugging is normal Motor Examination: Normal muscle tone, bulk and strength. No atrophy or fasciculations. No drift of the extended upper extremities. DTR 2+. Plantars are flexor. Sensory Exam: Normal light touch, temperature, pinprick, vibration, and joint- position sensations. Rhomberg sign is absent. Coordination: No ataxia. No titubation. Gait Exam: With cane. Cerebellar Signs: [id number] is okay. Extrapyramidal System: No tremor, rigidity with normal facial expressions. No bradykinesia. No bradyphrenia. Normal arm swing and posture. No propulsion or retropulsion. Speech: Normal. MMSE Level of Consciousness: Alert. Orientation: Knows correct year, month, and season. Does not know date or day. Knows correct city, county and state. Knows correct location and floor. Registration: Able to register 3 objects. Attention: Serial 7's performed accurately to 93. Recall: Able to recall 1 out of 3 objects. Language: Normal spontaneous speech, fluency, repetition, naming, comprehension, reading, and writing. Total Score: 24/30. Results Reviewed Results Reviewed: [address] [address] XRay Report Signed Patient: Kaya Mckinley MR#: [id number] : 1950 Acct:[id number] Age/Sex: 74 / F ADM Date: 05/29/24 Loc: HO.XRAY Attending Dr: Sandy Ortiz MD Ordering Physician: Sandy Ortiz MD Date of Service: 05/29/24 Procedure(s): XR chest 4 views Accession Number(s): [id number] cc: Sandy Ortiz MD~ EXAMINATION: XR CHEST 4 OR MORE VIEWS HISTORY: PAIN COMPARISON: There are no prior studies for comparison. FINDINGS: PA, lateral, and bilateral oblique views of the chest are submitted. The lungs are expanded and clear. There is no pleural effusion, pneumothorax, or pulmonary vascular congestion. The heart is normal in size. The aorta is calcified. There is degenerative disc disease of the spine. XR/XR chest 4 views IMPRESSION: Clear lungs. Electronically signed by: Redd Porter MD 05/29/2024 02:57 PM EDT RP [address] [address] [address] Scan Report Signed Patient: Kaya Mckinley MR#: [id number] : 1950 Acct:[id number] Age/Sex: 73 / F ADM Date: 12/25/23 Loc: HO.CT Attending Dr: Sandy Ortiz MD Ordering Physician: Sandy Ortiz MD Date of Service: 12/25/23 Procedure(s): CT head/brain wo IV con Accession Number(s): [id number] cc: Garret Rose MD; Sandy Ortiz MD~ EXAMINATION: CT HEAD WITHOUT CONTRAST CLINICAL INFORMATION: Mild cognitive impairment COMPARISON: None available. TECHNIQUE: Contiguous axial imaging was performed from the skull base to vertex without intravenous administration of contrast. This CT examination was performed using dose optimization techniques as appropriate, variously including the following: *Automated exposure control *Adjustment of mA and/or kV according to patient size (this includes techniques or standardized protocols for targeted exams where dose is matched to indication/reason for exam; i.e. extremities or head) *Use of iterative reconstruction technique DLP: 753 mGy-cm FINDINGS: There is mild prominence to the sulci and ventricles. No intra or extra-axial fluid collection or hemorrhage, mass, or mass effect. Calvarium intact. CT/CT head/brain wo IV con IMPRESSION: No acute intracranial pathology. Electronically signed by: Nitin Garsia MD 12/25/2023 11:26 AM EST RP 08/2023 labs ok 09/14/2023 EEG WNL Assessment & Plan Assessment & Plan (1) MCI (mild cognitive impairment): Code(s): G31.84 - Mild cognitive impairment of uncertain or unknown etiology Category: Medical Plan: Continue donepezil 10mg 1 tablet at bedtime. Start memantine 5mg 1 tablet twice a day, use/side effects reviewed. Stay physically and socially active, use cane. XR results reviewed, degenerative disc disease of spine. Medications: New memantine (Namenda) 5 mg PO BID 60 tabs 3RF 30 days Coding Level of Care Code Est Pt Level 4 (70574) Diagnoses MCI (mild cognitive impairment) G31.84
--- OUTSIDE RECORDS SUMMARY | 2024-09-30 16:33 | XMS_ITS | Clinical Summary ---
Author Organization [facility] [address] [facility] Address [address] [place] [address] Phone Care Team Providers Care Market Research Intern Name Role Phone Physician, Pcp Unknown Primary Care Provider Isabella vailable Allergies Active Allergy Reactions Criticality Noted Date Comments Oxycodone 11/01/2016 itchy Oxycodone-Acetaminophen 09/23/2021 Medications diphenhydrAMINE (BENADRYL) 25 mg tablet Take 1 Tablet by mouth at bedtime. Active atorvastatin (LIPITOR) 40 mg tablet Take 1 Tablet by mouth at bedtime. 024 Active blood-glucose meter kit 1 Each by Does not apply route 2 times daily. 023 Active cholecalciferol (VITAMIN D-3) 50 mcg (2,000 unit) capsule Take 1 capsule (2,000 Units total) by mouth 1 (one) time each day. 023 Active Autolet lancing device Use daily to check blood sugar as directed 023 Active blood glucose control, normal (OneTouch Ultra Control) solution Use to check FSG twice a day 023 Active ONETOUCH DELICA LANCETS MISC Use to check FSG twice a day 023 Active fluticasone propionate (FLONASE) 50 mcg/actuation nasal spray 1-2 Sprays by Each Nare route daily. Active aspirin 81 mg chewable tablet Chew 1 tablet (81 mg total) 1 (one) time each day. 019 Active coenzyme Q-10 100 mg capsule Take [...] MOUTH EVERYDAY AT BEDTIME 90 capsule 3 Active senna-docusate (PERICOLACE) 8.6-50 mg per tabletIndicatio ns:Constipation , unspecified constipation type Take 2 tablets by mouth 1 (one) time each day. 60 each 024 2024 Active polycarbophil (FiberCon) 625 mg tabletIndicatio ns:Constipation , unspecified constipation type Take 1 tablet (625 mg total) by mouth 1 (one) time each day. 30 each 024 2024 Active albuterol 2.5 mg /3 mL (0.083 %) nebulizer solution Take 3 mL (2.5 mg total) by nebulization every 6 (six) hours if needed. 022 Active albuterol HFA (ProAir HFA) 90 mcg/actuation inhaler Active alendronate (FOSAMAX) 70 mg tablet alendronate 70 mg tablet Active amitriptyline (ELAVIL) 25 mg tablet 1 tablet (25 mg total). 013 Active amitriptyline (ELAVIL) 10 mg tablet Take 1 tablet (10 mg total) by mouth. 014 Active budesonide-form oteroL (SYMBICORT) 160-4.5 mcg/actuation inhaler Inhale 2 puffs by mouth 2 (two) times a day. Active amLODIPine (NORVASC) 5 mg tablet Take 1 tablet (5 mg total) by mouth daily. Active budesonide-form oteroL (Symbicort) 80-4.5 mcg/actuation inhaler Inhale 2 puffs by mouth 2 (two) times a day. Active cetirizine (ZyrTEC) 10 mg tablet Take 1 tablet (10 mg total) by mouth daily. Active ergocalciferol (VITAMIN D-2) 1,250 mcg (50,000 unit) capsule Take 1,000 Units by mouth. Active influenza trivalent, 65 years and up, (Fluzone High-Dose Triv 24-25) (PF) vaccine TO BE ADMINISTERED BY PHARMACIST FOR IMMUNIZATION Active lovastatin (MEVACOR) 40 mg tablet Take 1 tablet (40 mg total) by mouth. Active meclizine (ANTIVERT) 25 mg tablet Take 1 tablet (25 mg total) by mouth. Active melatonin 5 mg tablet Take 1 tablet (5 mg total) by mouth. Active montelukast (SINGULAIR) 10 mg tablet Take 1 tablet (10 mg total) by mouth. Active omeprazole (PriLOSEC) [address] capsule Take 1 capsule (20 mg total) by mouth 1 (one) time each day in the morning. Active omeprazole 20 mg tablet,disinteg rat, delay rel Take by mouth. Active ondansetron (ZOFRAN) 4 mg/5 mL solution TAKE 5ML BY MOUTH EVERY 8 HOURS NEEDED FOR NAUSEA Active pantoprazole (PROTONIX) 40 mg EC tablet Take 1 tablet (40 mg total) by mouth 1 (one) time each day. Active triamcinolone (KENALOG) 0.025 % cream Apply 0.25 Applications topically 2 (two) times a day. Active triamcinolone (KENALOG) 0.1 % cream TAKE 1 APPLICATION (TOPICAL) 2 TIMES PER DAY (ITCHING) FOR 14 DAYS DO NOT USE ON GROIN OR FACE. 024 Active coenzyme T61-msarglq E 100-5 mg-unit capsule Take 200 mg by mouth. Active blood-glucose meter kit 1 each 2 (two) times a day before meals. One touch 1 kit 1 025 Active ibuprofen (ADVIL,MOTRIN) 600 mg tablet TAKE 1 TABLET BY MOUTH EVERY 8 HOURS IF NEEDED FOR MILD PAIN. 90 tablet 2 025 Active hydrOXYzine HCL (ATARAX) 10 mg tabletIndicatio ns:Pruritus, unspecified TAKE 1 TABLET BY MOUTH THREE TIMES A DAY 90 tablet 1 025 Active OneTouch Ultra Test test strip Check sugar 2 times daily 100 strip 3 025 Active lidocaine (XYLOCAINE) 5 % ointmentIndicat ions:Chronic right-sided thoracic back pain Apply pea-sized amount 3 times a day on the back spasm area as needed for pain 35.44 g 3 025 Active valsartan (DIOVAN) 320 mg tabletIndicatio ns:Essential (primary) hypertension TAKE 1 TABLET BY MOUTH EVERY DAY 90 tablet 1 025 Active tiZANidine (ZANAFLEX) 4 mg tablet TAKE 1 TABLET (4 MG TOTAL) BY MOUTH 1 (ONE) TIME EACH DAY IF NEEDED FOR MUSCLE SPASMS. 30 tablet 1 025 Active metFORMIN (GLUCOPHAGE) 500 mg tabletIndicatio ns:Type 2 diabetes mellitus with other specified complication (CMS/HCC V24, CMS/HCC V28) TAKE 1 TABLET BY MOUTH TWICE A DAY WITH FOOD 180 tablet 4 025 Active diclofenac (VOLTAREN) 1 % topical gel Apply 2 g topically 2 (two) times a day. 100 g 11 025 Active bisacodyL (DULCOLAX) 5 mg EC tablet Take 2 tablets by mouth right before beginning bowel prep. See instructions provided by the office 2 tablet 025 Active polyethylene glycol (Golytely) 236-22.74-6.74 -5.86 gram solution Take 4L by mouth once for one dose. May substitue any PEG. Starting at 2PM the day before your procedure drink 1 8oz glasses at your own pace until you complete half of the gallon. Finish 2nd half of the gallon at 8PM. 4000 mL Active meloxicam (MOBIC) 15 mg tablet Take 1 tablet (15 mg total) by mouth 1 (one) time each day. 30 each 025 2024 morphine (MSIR) 15 mg tabletIndicatio ns:Left lower quadrant abdominal pain Take 1 tablet (15 mg total) by mouth every 4 (four) hours if needed for severe pain for up to 10 days. Max Daily Amount: 90 mg 10 tablet 025 2024 amoxicillin-cla vulanate (AUGMENTIN) 875-125 mg per tablet Take 1 tablet by mouth 2 (two) times a day for 7 days. 14 each 025 2024 Discontinued amoxicillin-cla vulanate (AUGMENTIN) 875-125 mg per tablet Take 1 tablet by mouth 2 (two) times a day for 7 days. 14 each 025 2024 Discontinued(F ormulary change) amoxicillin-cla vulanate (AUGMENTIN) 875-125 mg per tablet Take 1 tablet by mouth 2 (two) times a day for 7 days. 14 each 025 2024 Discontinued(F ormulary change) amoxicillin-cla vulanate (AUGMENTIN) 875-125 mg per tablet Take 1 tablet by mouth 2 (two) times a day for 7 days. 14 each 025 2024 Discontinued amoxicillin-cla vulanate (AUGMENTIN) 875-125 mg per tablet Take 1 tablet by mouth 2 (two) times a day for 7 days. 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 Chest pain 05/04/2021 Overview (11/16/2023): [facility] 03/14/21-03/15/21 Last Assessment & Plan: The [...] Encounters Date Type Department Care Team Description 09/14/2024 11:46 AM EDT - 09/14/2024 3:26 PM EDT Emergency [facility] Emergency [address] [place] [phone] Sotero Izquierdo MD Diverticulitis (Primary Dx); Left lower quadrant abdominal pain Discharge Disposition: Home or Self Care 09/08/2024 8:45 AM EDT Office Visit Orthopedic Surgery - [place] [address] [facility] [address] [place] [phone] Abraham Auguste DPM Controlled type 2 diabetes with neuropathy (CMS/HCC V24, CMS/HCC V28) (Primary Dx); Arthritis of both feet; Disorder of ligament of ankle, left; Capsulitis of left foot 08/11/2024 Telephone Internal Medicine [facility] [address] [facility] [address] [place] [phone] Cruz Huynh MD 08/07/2024 8:30 AM EDT Office Visit Orthopedic Surgery - [place] [address] [facility] [address] [place] [phone] Abraham Auguste DPM Controlled type 2 diabetes with neuropathy ([facility] V24, [facility] V28) (Primary Dx); Arthritis of both feet; Capsulitis of left foot; Disorder of ligament of ankle, left 07/30/2024 Telephone Gastroenterology - [address] [facility] [address] [place] [address] Drew Juan MD 07/17/2024 8:00 AM EDT Office Visit Orthopedic Surgery - [place] [address] [facility] [address] [place] [phone] Abraham Auguste DPM Controlled type 2 diabetes with neuropathy ([facility] V24, CMS/[facility] V28) (Primary Dx); Arthritis of both feet; Capsulitis of left foot; Disorder of ligament of ankle, left from Last 3 Months Immunizations Name Administration [...] Surgery Date Site/Laterality Comments BREAST REDUCTION PROCEDURE: NC BREAST REDUCTION KNEE SURGERY PROCEDURE: HISTORICAL KNEE SURGERY; COMMENT: bilateral - cartilage injury BACK SURGERY 2008 PROCEDURE: HISTORICAL BACK SURGERY; COMMENT: fusion SHOULDER [...] 2, uncontrolled DM2 (diabetes mellitus, type 2) ([facility] V24, [facility] V28) 05/26/2015 DX:DM2 (diabetes mellitus, type 2) ([facility]) Mild intermittent asthma 02/13/2019 DX:Mild [...] Sign Reading Time Taken Comments Blood Pressure 129/62 09/14/2024 2:29 PM EDT Pulse 68 09/14/2024 2:29 PM EDT Temperature 36.7 C (98.1 F) 09/14/2024 2:29 PM EDT Respiratory Rate 18 09/14/2024 2:29 PM EDT Oxygen Saturation 100% 09/14/2024 2:29 PM EDT Inhaled Oxygen Concentration - - Weight 66.2 kg (146 lb) 08/07/2024 8:38 AM EDT Height 152.4 cm (5') 08/07/2024 8:38 AM EDT Body Mass Index 28.51 08/07/2024 8:38 AM EDT Plan of Treatment Upcoming Encounters Date Type Department Care Team (Late st Contact Info) Description 10/03/2024 10:30 AM EDT Appointment [facility] Endoscopy [address] [place] [phone] Drew Juan MD [address] [facility] [address] [place] [address] 06/09/2025 9:00 AM EDT Office Visit Orthopedic Surgery - [place] [address] [facility] [address] [place] [phone] Abraham Auguste DPM [address] [facility] [address] [place] [address] Health Maintenance Due Date Last Done Comments Diabetes: Annual Retina Eye Exam 1960 Zoster Vaccines (1 of 2) 2000 RSV Immunization Adult Patients (1 - Risk 60-74 years 1-dose series) 2010 Falls Risk Assessment 01/21/2022 Social Influencers of Health Screening 01/21/2022 Diabetes: Annual Urine Albumin-Creatinine Ratio (uACR) 06/01/2023 05/31/2022 Medicare Annual Wellness Visit 08/31/2023 08/30/2022 COVID-19 Vaccine ( season) 2023 02/23/2021, 05/06/2020, 04/08/2020 Depression Screening 02/13/2024 Diabetes: Annual Foot Exam 03/21/2024 03/21/2023 Diabetes: Blood Sugar Control Test (HGBA1C) 05/08/2024 11/09/2023, 11/09/2023, 06/15/2023 Colorectal Cancer Screening: Colonoscopy 09/07/2024 09/08/2019 Influenza Vaccine (#1) 2024 , 10/22/2022, 10/11/2022, Additional history exists Breast Cancer Screening 08/08/2025 08/09/19 24, 07/19/2022, 2021, Additional history exists Diabetes: Annual GFR (Glomerular Filtration Rate) 09/14/2025 09/14/2024, 11/09/2023, 11/09/2023, Additional history exists Hypertension/CHF/CAD Annual BMP Blood Test 09/14/2025 09/14/2024, 11/09/2023, 11/09/2023, Additional history exists Cholesterol Screening (Lipid Panel) [...] Procedure Name Priority Date/Time Associated Diagnosis Comments ECG ANNOTATED 09/15/2024 CT ABDOMEN PELVIS W CONTRAST STAT 09/14/2024 1:24 PM EDT HOOKS URINE CULTURE TUBE STAT 09/15/19 1:08 PM EDT URINALYSIS WITH REFLEX MICROSCOPIC AND CULTURE STAT 09/14/2024 1:08 PM EDT URINALYSIS WITH REFLEX MICROSCOPIC AND CULTURE STAT 09/14/2024 1:08 PM EDT LACTATE, WITH REFLEX STAT 09/14/2024 1:08 PM EDT CULTURE URINE STAT 09/14/2024 1:08 PM EDT CULTURE BLOOD STAT 09/14/2024 1:08 PM EDT CULTURE BLOOD STAT 09/14/2024 1:08 PM EDT COMPREHENSIVE METABOLIC PANEL STAT 09/14/2024 12:09 PM EDT COMPLETE BLOOD COUNT STAT 09/14/2024 12:09 PM EDT TYPE AND SCREEN STAT 09/14/2024 12:09 PM EDT ACTIVATED PARTIAL THROMBOPLASTIN TIME STAT 09/14/2024 12:09 PM EDT PROTHROMBIN TIME WITH INR STAT 09/14/2024 12:09 PM EDT ECG 12-LEAD STAT 09/14/2024 12:06 PM EDT INJECTION TENDON OR LIGAMENT Routine 09/08/2024 8:45 AM EDT Capsulitis of left foot INJECTION TENDON OR LIGAMENT Routine 07/17/2024 8:00 AM EDT Capsulitis of left foot HEMOGLOBIN A1C Routine 11/09/2023 LIPID PANEL Routine 11/09/2023 THUY SCREENING DIGITAL Routine 08/09/2023 10:10 AM EDT Encounter for screening mammogram for malignant neoplasm of breast [facility] DEXA AXIAL SKELETON Routine 08/09/19 9:58 AM EDT Other specified disorders of bone density and structure, other site DIABETES FOOT EXAM Routine 03/21/2023 URINE ALBUMIN CREATININE RATIO Routine 05/31/2022 COLONOSCOPY Routine 09/08/2019 HEPATITIS C SCREENING Routine 01/01/2016 from Last 3 Months or Most Recently Relevant to Health Maintenance Results * ECG-Annotated (09/15/2024) us Provider Onbase ECG ORDERABLES Final Result * CT Abdomen Pelvis w Contrast (09/14/2024 1:24 PM EDT) Anatomical Region Laterality Modality Body Computed Tomogra phy 09/14/2024 1:50 PM EDT Impressions 09/14/2024 1:59 PM EDT Acute sigmoid diverticulitis. No abscess or free air. -------- FINAL REPORT -------- Dictated By: JOSH CERON Dictated Date: 09/14/2024 13:50 ET Assigned Physician: JOSH CERON Reviewed and Electronically Signed By: JOSH CERON Signed Date: 09/14/2024 13:59 ET Workstation ID: [id number] Transcribed By: Self Edit Transcribed Date: 09/14/2024 13:50 ET Narrative 09/14/2024 1:59 PM EDT PROCEDURE: CT ABDOMEN/PELVIS INDICATION: pain TECHNIQUE: CT of the abdomen and pelvis following the intravenous administration of 90cc Isovue 370. Multiplanar reformats. The examination was performed utilizing dose reduction techniques. Total DLP 776 COMPARISON: 11/29/2023 FINDINGS: LOWER THORAX: Mild coronary artery calcifications. Lingular atelectasis. HEPATOBILIARY: Hepatic steatosis with hepatomegaly. No focal liver lesions. Gallbladder and biliary tree are normal. SPLEEN: No splenomegaly. PANCREAS: No focal mass or ductal dilatation. ADRENALS: No nodules. KIDNEYS/URETERS: No hydronephrosis, stones, or solid mass. PELVIC ORGANS/BLADDER: Uterus, bladder, and adnexal structures are normal. PERITONEUM / RETROPERITONEUM: No ascites or free air. No retroperitoneal lymphadenopathy. VESSELS: Abdominal aorta is normal in size. Portal vein is patent. GI TRACT: Colonic diverticulosis with wall thickening and surrounding inflammation at the proximal sigmoid colon. No bowel obstruction. Normal appendix. BONES AND SOFT TISSUES: Superficial soft tissues are within normal limits. Fusion hardware at L4-5 and L5-S1. Degenerative changes seen throughout the bones. Procedure Note Josh Ceron MD - 09/14/2024 PROCEDURE: CT ABDOMEN/PELVIS INDICATION: pain TECHNIQUE: CT of the abdomen and pelvis following the intravenousadministration of 90cc Isovue 370. Multiplanar reformats. The examinationwas performed utilizing dose reduction techniques. Total DLP 776 COMPARISON: 11/29/2023 FINDINGS: LOWER THORAX: Mild coronary artery calcifications. Lingularatelectasis. HEPATOBILIARY: Hepatic steatosis with hepatomegaly. No focal liverlesions. Gallbladder and biliary tree are normal. SPLEEN: No splenomegaly. PANCREAS: No focal mass or ductal dilatation. ADRENALS: No nodules. KIDNEYS/URETERS: No hydronephrosis, stones, or solid mass. PELVIC ORGANS/BLADDER: Uterus, bladder, and adnexal structures arenormal. PERITONEUM / RETROPERITONEUM: No ascites or free air. No retroperitoneallymphadenopathy. VESSELS: Abdominal aorta is normal in size. Portal vein is patent. GI TRACT: Colonic diverticulosis with wall thickening and surroundinginflammation at the proximal sigmoid colon. No bowel obstruction. Normalappendix. BONES AND SOFT TISSUES: Superficial soft tissues are within normal limits.Fusion hardware at L4-5 and L5-S1. Degenerative changes seen throughoutthe bones. IMPRESSION: Acute sigmoid diverticulitis. No abscess or free air. -------- FINAL REPORT -------- Dictated By: JOSH CERON Dictated Date: 09/14/2024 13:50 ET Assigned Physician: JOSH CERON Reviewed and Electronically Signed By: JOSH CERON Signed Date: 09/14/2024 13:59 ET Workstation ID: [id number] Transcribed By: Self Edit Transcribed Date: 09/14/2024 13:50 ET us Sotero Izquierdo MD IMG CT PROCEDURES Final Result * Lactate, with reflex (09/14/2024 1:08 PM EDT) [facility] LACTIC ACID 1.0 0.4 - 2.0 mmol/L LAB CHEMISTRY METHOD 09/14/2024 1:49 PM EDT [facility] Blood Venous blood specimen / Unknown Venipuncture / Unknown 09/14/2024 1:08 PM EDT 09/14/2024 1:19 PM EDT us Sotero Izquierdo MD LAB BLOOD ORDERABLES Final Resu lt [facility] [address] [place] [address], [place] [phone] * (ABNORMAL) Urinalysis with reflex microscopic and culture (09/14/2024 1:08 PM EDT) [facility] Specific [place] Urine 1.008 1.003 - 1.030 LAB URINALYSIS - AUTOMATED METHOD 09/14/2024 1:40 PM EDT [facility] pH, Urine 7.0 5.0 - 8.0 pH LAB URINALYSIS - AUTOMATED METHOD 09/14/2024 1:40 PM EDT [facility] Leukocytes, Urine Small(A) Negative LAB URINALYSIS - AUTOMATED METHOD 09/14/2024 1:40 PM EDT [facility] Nitrite, Urine Negative Negative LAB URINALYSIS - AUTOMATED METHOD 09/14/2024 1:40 PM T [facility] Protein, Urine Negative <=Trace mg/dL LAB URINALYSIS - AUTOMATED METHOD 09/14/2024 1:40 PM EDT [facility] Glucose, Urine Negative Negative mg/dL LAB URINALYSIS - AUTOMATED METHOD 09/14/2024 1:40 PM EDT [facility] Ketones, Urine Negative Negative mg/dL LAB URINALYSIS - AUTOMATED METHOD 09/14/2024 1:40 PM EDT [facility] Urobilinogen, Urine 0.2 0.2 - 1.0 mg/dL LAB URINALYSIS - AUTOMATED METHOD 09/14/2024 1:40 PM EDT [facility] Bilirubin, Urine Negative Negative LAB URINALYSIS - AUTOMATED METHOD 09/14/2024 1:40 PM EDT [facility] Blood, Urine Negative Negative LAB URINALYSIS - AUTOMATED METHOD 09/14[facility]2024 [facility] RBC, Urine 0.4 0 - 4 /HPF LAB URINALYSIS - AUTOMATED METHOD 09/14/2024 1:40 PM EDT [facility] WBC, Urine 4.8(H) 0 - 4 /HPF LAB URINALYSIS - AUTOMATED METHOD 09/14/2024 1:40 PM EDT [facility] Squamous Epithelial, Urine 24 0 - 60 /LPF LAB URINALYSIS - AUTOMATED METHOD 09/14/2024 1:40 PM [facility] Bacteria, Urine Negative Negative /HPF LAB URINALYSIS - AUTOMATED METHOD 09/14/2024 1:40 [facility] Hyaline Casts, Urine 0.0 0 - 3 /LPF LAB URINALYSIS - AUTOMATED METHOD 09/14/2024 1:40 PM EDT [facility] Urine Urine specimen obtained by clean catch procedure / Unknown Non-blood Collection / Unknown 09/14/2024 1:08 PM EDT 09/14/2024 1:19 PM EDT us Sotero Izquierdo MD LAB URINE ORDERABLES Final Resu lt [facility] [address] [place] [address], [place] [phone] * Hooks urine culture tube (09/14/2024 1:08 PM EDT) Extra Tube Hold for add-ons. 09/14/2024 3:01 PM EDT [facility] Comment:Auto resulted. Urine Urine specimen obtained by clean catch procedure / Unknown Non-blood Collection / Unknown 09/14/2024 1:08 PM EDT 09/14/2024 1:19 PM EDT Sotero Izquierdo MD LAB URINE ORDERABLES Final Resu lt [facility] [address] [place] [address], [place] [phone] * Culture blood (09/14/2024 1:08 PM EDT) Only the most recent of2 resultswithin the time period is included. Culture, Blood No growth at 5 days 09/19/2024 2:01 PM EDT [facility] Blood Venous blood specimen / Unknown Venipuncture / Unknown 09/14/2024 1:08 PM EDT 09/14/2024 1:18 PM EDT Sotero Izquierdo MD LAB MICROBIOLOGY - GENERAL ORDE RABLES Final Result [facility] [address] [place] [address], [place] [phone] * Culture urine (09/14/2024 1:08 PM EDT) Culture, Urine No growth 09/15/2024 8:08 AM EDT [facility] Urine Urine specimen obtained by clean catch procedure / Unknown Non-blood Collection / Unknown 09/14/2024 1:08 PM EDT 09/14/2024 1:40 PM EDT us Sotero Izquierdo MD LAB MICROBIOLOGY - GENERAL ORDTara NELSON Final Result Performing Organization Address [facility]/ZIP Co de Phone Number [facility] [address] [place] [address], [place] [phone] * Activated partial thromboplastin time (09/14/2024 12:09 PM EDT) Pathologist [facility] aPTT 31.5 24.1 - 39.3 sec LAB COAGULATION METHOD 09/14/2024 12:53 PM EDT [facility] Blood Venous blood specimen / Unknown Venipuncture / Unknown 09/14/2024 12:09 PM EDT 09/14/2024 12:28 PM EDT us Sotero Izquierdo MD LAB BLOOD ORDERABLES Final Resu lt Performing Organization Address [facility]/[place] Co de Phone Number [facility] [address] [place] [address], [place] [phone] * Prothrombin time with INR (09/14/2024 12:09 PM EDT) [facility] Protime 11.7 10.6 - 13.9 sec LAB COAGULATION METHOD 09/14/2024 12:53 PM EDT [facility] INR 0.9 LAB COAGULATION METHOD 09/14/2024 12:53 PM EDT [facility] Blood Venous blood specimen / Unknown Venipuncture / Unknown 09/14/2024 12:09 PM EDT 09/14/2024 12:28 PM EDT us Sotero Izquierdo MD LAB BLOOD ORDERABLES Final Resu lt Performing Organization Address [facility]/ZIP Co de Phone Number [facility] [address] [place] [address], [place] [phone] * (ABNORMAL) Complete blood count (09/14/2024 12:09 PM EDT) [facility] WBC 17.0(H) 4.8 - 10.8 K/mcL LAB HEMETOLOGY METHOD 09/14/2024 12:41 PM [facility] RBC 4.10 3.80 - 4.80 M/mcL LAB HEMETOLOGY METHOD 09/14/2024 12:41 PM [facility] Hemoglobin 11.4(L) 11.5 - 16.0 g/dL LAB HEMETOLOGY METHOD 09/14/2024 12:41 PM [facility] Hematocrit 35.8 35.0 - 47.0 % LAB HEMETOLOGY METHOD 09/14/2024 12:41 PM [facility] MCV 86.7 79.0 - 98.0 FL LAB HEMETOLOGY METHOD 09/14/2024 12:41 PM [facility] MCH 27.6 27.0 - 32.0 pcg LAB HEMETOLOGY METHOD 09/14/2024 12:41 PM [facility] MCHC 31.8(L) 32.0 - 37.0 g/dL LAB HEMETOLOGY METHOD 09/14/2024 12:41 PM [facility] RDW 14.2 11.0 - 15.0 % LAB HEMETOLOGY METHOD 09/14/2024 12:41 PM [facility] Platelets 372 130 - 400 K/mcL LAB HEMETOLOGY METHOD 09/14/2024 12:41 PM [facility] MPV 10.4 7.0 - 11.0 FL LAB HEMETOLOGY METHOD 09/14/2024 12:41 PM [facility] NRBC 0.0 <1.0 % LAB HEMETOLOGY METHOD 09/14/2024 12:41 PM [facility] NRBC Absolute 0.00 <0.10 K/[facility] LAB HEMETOLOGY METHOD 09/14/2024 12:41 PM EDT [facility] Blood Venous blood specimen / Unknown Venipuncture / Unknown 09/14/2024 12:09 PM EDT 09/14/2024 12:28 PM EDT Sotero Izquierdo MD LAB BLOOD ORDERABLES Final Resu lt [facility] [address] [place] [address], [place] [phone] * Type and screen (09/14/2024 12:09 PM EDT) ABO Group O 09/14/2024 1:18 PM EDT [facility] Rh Type Positive 09/14/2024 1:18 PM EDT [facility] Antibody Screen Negative 09/14/2024 1:18 PM EDT [facility] Blood Venous blood specimen / Unknown Venipuncture / Unknown 09/14/2024 12:09 PM EDT 09/14/2024 12:28 PM EDT Sotero Izquierdo MD LAB BLOOD BANK TEST ORDERABLES Final Result Performing Organization Address [facility]/ZIP Co de Phone Number [facility] [address] [place] [address], [place] [phone] * (ABNORMAL) Comprehensive metabolic panel (09/14/2024 12:09 PM EDT) Sodium 139 133 - 145 mmol/L LAB CHEMISTRY METHOD 09/14/2024 12:56 PM EDT [facility] Potassium 3.7 3.5 - 5.5 mmol/L LAB CHEMISTRY METHOD 09/14/2024 12:56 PM EDT [facility] Chloride 107 96 - 110 mmol/L LAB CHEMISTRY METHOD 09/14/2024 12:56 PM [facility] CO2 28 21 - 32 mmol/L LAB CHEMISTRY METHOD 09/14/2024 12:56 PM [facility] Anion Gap 4 3 - 11 LAB CHEMISTRY METHOD 09/14/2024 12:56 PM [facility] Glucose 107(H) 70 - 100 mg/dL LAB CHEMISTRY METHOD 09/14/2024 12:56 PM [facility] BUN 21 5 - 25 mg/dL LAB CHEMISTRY METHOD 09/14/2024 12:56 PM [facility] Creatinine 0.71 0.50 - 1.10 mg/dL LAB CHEMISTRY METHOD 09/14/2024 12:56 PM [facility] eGFR 89 >=60 mL/min/1. 73m2 LAB CHEMISTRY METHOD 09/14/2024 12:56 PM [facility] Comment:Calculation based on the Chronic Kidney Disease Epidemiology Collaboration (CKD-EPI) equation refit without adjustment for race. BUN/Creatinine Ratio 29.6 LAB CHEMISTRY METHOD 09/14/2024 12:56 PM [facility] Calcium 9.4 8.5 - 10.5 mg/dL LAB CHEMISTRY METHOD 09/14/2024 12:56 PM [facility] AST (SGOT) 18 10 - 42 unit/L LAB CHEMISTRY METHOD 09/14/2024 12:56 PM [facility] ALT (SGPT) 28 10 - 60 unit/L LAB CHEMISTRY METHOD 09/14/2024 12:56 PM [facility] Alkaline Phosphatase 92 42 - 121 unit/L LAB CHEMISTRY METHOD 09/14/2024 12:56 PM [facility] Total Protein 6.7 6.0 - 8.0 g/dL LAB CHEMISTRY METHOD 09/14/2024 12:56 PM [facility] Albumin 3.5 3.2 - 5.0 g/dL LAB CHEMISTRY METHOD 09/14/2024 12:56 PM EDT [facility] Total Bilirubin 0.4 0.0 - 1.4 mg/dL LAB CHEMISTRY METHOD 09/14/2024 12:56 PM EDT [facility] Blood Venous blood specimen / Unknown Venipuncture / Unknown 09/14/2024 12:09 PM EDT 09/14/2024 12:28 PM EDT Sotero Izquierdo MD LAB BLOOD ORDERABLES Final Resu lt [facility] [address] [place] [address], [place] [phone] * ECG 12 lead (09/14/2024 12:06 PM EDT) Ventricular Rate ECG 74 BPM GEMUSE Atrial Rate 74 BPM GEMUSE P-R Interval 172 ms GEMUSE QRS Duration 84 ms GEMUSE Q-T Interval 392 ms GEMUSE QTc 435 ms GEMUSE P Wave Jackson 31 degrees GEMUSE R Jackson -14 degrees GEMUSE T Jackson 21 degrees GEMUSE ECG Interpretation Normal sinus rhythm Moderate voltage criteria for LVH, may be normal variant Abnormal ECG When compared with ECG of 14-MAR-2021 09:01, No significant change was found Confirmed by SHY MICHELE ([id number]) on 09/14/2024 9:49:03 PM GEMUSE 09/14/2024 12:0 6 PM EDT 09/14/2024 9:49 PM EDT Sotero Izquierdo MD ECG ORDERABLES Final Result GEMUSE * Injection tendon or ligament (09/08/2024 8:45 AM EDT) Narrative Abraham Auguste DPM - 09/08/2024 8:45 AM EDT Abraham Auguste DPM 09/08/2024 6:16 PM Injection tendon or ligament Indications: pain Details: 25 G needle Medications: 0.5 mL lidocaine (PF) 1 %; 40 mg triamcinolone acetonide 40 mg/mL Informed Consent: Laterality: Left Abraham Auguste DPM IN CLINIC/BEDSIDE ORDERABLE S Final Result * Injection tendon or ligament (07/17/2024 8:00 AM EDT) Narrative Abraham Auguste DPM - 07/17/2024 8:00 AM EDT Abraham Auguste DPM 07/17/2024 8:49 AM Injection tendon or ligament Indications: pain Details: 25 G needle Medications: 0.5 mL lidocaine (PF) 1 %; 40 mg triamcinolone acetonide 40 mg/mL Informed Consent: Laterality: Left Abraham Auguste DPM IN CLINIC/BEDSIDE ORDERABLE S Final Result * (ABNORMAL) Hemoglobin A1c (11/09/2023) Hemoglobin A1C 6.7(A) <=6.5 % Blood Venous blood specimen / Unknown Historical Provider MD LAB BLOOD ORDERABLES Madhavi l Result * Lipid panel (11/09/2023) LDL/HDL Ratio 3 0 - 4 Triglycerides 146 0 - 150 mg/dL Cholesterol 189 0 - 200 mg/dL HDL 61 >=40 mg/dL LDL Cholesterol 99 0 - 100 mg/dL Blood Venous blood specimen / Unknown Historical Provider MD LAB BLOOD ORDERABLES Madhavi l Result * THUY SCREENING DIGITAL (08/09/2023 10:10 AM EDT) Anatomical Region Laterality Modality Mammography 08/09/2023 8:24 AM EDT Narrative 08/09/2023 10:10 AM EDT [facility] Diagnostic Imaging Department [address] [place] [address] [id number] Patient: SAMANTHA TAN /Age/Sex: 1950 - 73 - F Unit#: [id number] Location/Status: SPDIMAM/REG CLI Mnemonic/Ordering Site: [facility] Ordering Physician: CRUZ HUYNH MD [facility] Screening Digital - 08/09/23 - 40 Report Status:Signed EXAM: [facility] Screening Digital EXAM DATE AND TIME: 08/09/2023 8:41 AM HISTORY: Screening. Prior left breast biopsy and bilateral reduction mammoplasty. COMPARISON: 07/19/22, 03/02/21, 08/21/18 TECHNIQUE: Bilateral digital breast tomosynthesis was performed in the CC and MLO projections. Computer aided detection with SEA 3D 3.1 was employed. TISSUE DENSITY: a. The breasts are almost entirely fatty. FINDINGS: Reduction mammoplasty sequelae are again noted, including numerous small benign rim calcifications close to the skin line inferiorly. No suspicious masses, grouped microcalcifications, or developing architectural distortion are seen. The vascularity is unremarkable. IMPRESSION: Stable mammographic appearance of the breasts. No evidence of malignancy is seen. A negative mammogram in the presence of a clinically suspicious palpable abnormality does not preclude the possibility of malignancy or alter the indications for biopsy. BI-RADS: Category 2: Benign RECOMMENDATION(S): 1: Routine screening mammogram BILATERAL in 1 year. Dictating Physician: CYN BAPTISTE MD Electronically Signed by: CYN BAPTISTE MD Dic Date/Time: 08/09/23 1009 Sign date/Time: 08/09/23 1010 Procedure Note Cyn Baptiste MD - 11/28/2023 [facility] Diagnostic Imaging Department [address] [place] [address] Patient: SAMANTHA TAN /Age/Sex: 1950 - 73 - F Unit#: [id number] Location/Status: SPDIMAM/REG CLI Mnemonic/Ordering Site: [facility] Ordering Physician: CRUZ HUYNH MD [facility] Screening Digital - 08/09/23 - 0840 Report Status:Signed EXAM: [facility] Screening Digital EXAM DATE AND TIME: 08/09/2023 8:41 AM HISTORY: Screening. Prior left breast biopsy and bilateral reduction mammoplasty. COMPARISON: 07/19/22, 03/02/21, 08/21/18 TECHNIQUE: Bilateral digital breast tomosynthesis was performed in the CCand MLO projections. Computer aided detection with SEA 3D 3.1was employed. TISSUE DENSITY: a. The [...] date/Time: 08/09/23 1010 us Cruz Huynh MD IM BI PROCEDURES Final Result * [facility] DEXA AXIAL SKELETON (08/09/2023 9:58 AM EDT) Anatomical Region Laterality Modality Mammography 08/09/2023 8:24 AM EDT Narrative 08/09/2023 9:58 AM EDT [facility] Diagnostic Imaging Department [address] [place], [place] [id number] Patient: DOMINICKSAMANTHA /Age/Sex: 1950 - 73 - F Unit#: [id number] [facility] Ordering Physician: CRUZ HUYNH MD [facility] Dexa Axial Skeleton - 08/09/23 - 0911 Report Status:Signed HISTORY: The patient is a 73-year-old postmenopausal female with clinical concern for metabolic bone disease. FINDINGS: Dual [...] 107% of that of age matched controls. This yields a T-score of -1.0 and a Z-score of 0.5 and there is therefore no evidence of osteoporosis or osteopenia here. However, the T-score of the right femoral neck is -2.1 and that of the left femoral neck is -2.0 which is diagnostic of osteopenia. IMPRESSION: 1. Osteopenia. There has been a decrease of 1.0% in bone mineral density in the lumbar spine since the prior examination of 01/25/2021. There has been a decrease of 1.4% in bone mineral density in the right femur and a decrease of 4.8% in bone mineral density in the left femur. 2. FRAX analysis yields a 10-year probability of major osteoporotic fracture of 11.3% and a 10-year probability of hip fracture of 2.5%. Code 52872 Dictating Physician: NOLAN DENIS MD Electronically Signed by: NOLAN DENIS MD Dic Date/Time: 08/09/2356 Sign date/Time: 08/09/2358 Procedure Note Nolan Denis MD - 11/28/2023 [facility] Diagnostic Imaging Department [address] [place] [address] Patient: SAMANTHA TAN D.O.B./Age/Sex: 1950 - 73 - F Unit#: [id number] Location/Status: SPDIMA/REG CLI Mnemonic[facility] Ordering Physician: CRUZ HUYNH MD [facility] Dexa Axial Skeleton - 08/09/23 - 0911 Report Status:Signed HISTORY: The patient is a [...] density of the femurs bilaterally is 0.876 gm/[id number] is 87% of that of young normals [...] probability of hip fracture of 2.5%. Code 26162 Dictating Physician: NOLAN DENIS MD Electronically Signed by: NOLAN DENIS MD Dic Date/Time: 08/09/2356 Sign date/Time: 08/09/2358 Cruz Huynh MD IMG BI PROCEDURES Final Result * Diabetes Foot Exam (03/21/2023) [facility] Diabetes: Annual Foot Exam abstracted Historical Provider HEALTH MAINTENANCE Final Result * Urine Albumin Creatinine Ratio (05/31/2022) [facility] Urine Albumin Creatinine Ratio abstracted Historical Provider HEALTH MAINTENANCE Final Result * Colonoscopy (09/08/2019) [facility] Colonoscopy no interpretation , abstracted Anatomical Region Laterality Modality Other Historical Provider HEALTH MAINTENANCE Final Result * Hepatitis C Screening (01/01/2016) Pathologist [facility] Hepatitis C Screening abstracted [facility] Provider HEALTH MAINTENANCE Final Result from Last 3 Months or Most Recently Relevant to Health Maintenance Insurance [employer] Member Subscriber Plan / Payer (Ef fective 2023-Present) Name:Samantha Tan Relation to Subscriber:Self Name:Samantha Tan Payer ID:[id number] Group ID:[id number] Type:Not on file Address: [address] [id number] Care Teams Market Research Intern Relationship Specialty Start Date End Date Physician, Pcp Unknown PCP - General 09/14/24
--- OUTSIDE RECORDS SUMMARY | 2024-09-30 16:33 | XMS_ITS | Clinical Summary ---
Author Organization [employer] Address [address] [place] [address] Care Team Providers Care Property Manager Name Role Phone Unavailable Primary Care [...] 88 01/13/2022 1:59 PM EST Temperature 37.1 C (98.7 F) 01/13/2022 1:59 PM EST Respiratory Rate 16 01/13/2022 1:59 PM EST [...] 2023 02/23/2021, 05/06/2020, 04/08/2020 Influenza Vaccine (#1) 2024 3, 11/04/2021, 10/07/2018, Additional history exists Lipid [...] [facility] Comment: Reference range: <100 Desirable range <100 mg/dL for primary prevention; <70 mg/dL for patients with CHD or diabetic patients with > or = 2 CHD risk factors. LDL-C is now calculated using the Albert-Perez calculation, which is a validated novel method providing better accuracy than the Friedewald equation in the estimation of LDL-C. Albert SS et al. KEITH. 2013;310(19): 6798-1783 (http://education.Gingerd/faq/EJX053) Non-HDL Cholesterol 122 <130 mg/dL (calc) [facility] Comment: For patients with diabetes plus 1 major ASCVD risk factor, treating to a non-HDL-C goal of <100 mg/dL (LDL-C of <70 mg/dL) is considered a therapeutic option. Triglycerides 283(H) <150 mg/dL [facility] Comment: If a non-fasting specimen was collected, consider repeat triglyceride testing on a fasting specimen if clinically indicated. Caterina et al. J. of Clin. Lipidol. 2015;9:129-169. 04/19/2021 10:3 2 AM EST Garret Pierce MD LAB BLOOD ORDERABL ES Final Result [facility] [address] * Mammography Report 1 (12/29/2019 10:25 [...]
--- OUTSIDE RECORDS SUMMARY | 2024-09-30 16:33 | XMS_ITS ---
Author Name [facility] Organization Unknown History of Medication Use Medication Directions Dispensed Refills Start Date End Date Stat us benzonatate 200 mg capsule TAKE 1 CAPSULE BY MOUTH 3 TIMES A DAY FOR 7 DAYS NEEDED FOR COUGH active cetirizine 10 mg tablet TAKE 1 TABLET BY MOUTH EVERY DAY active cyclobenzaprine 10 mg tablet TAKE 1 TABLET BY MOUTH THREE TIMES A DAY NEEDED active hydroxyzine HCl 25 mg tablet TAKE 1 TABLET (ORAL) 3 TO 4 TIMES PER DAY (ITCHING) FOR 5 DAYS active ibuprofen 600 mg tablet TAKE 1 TABLET BY MOUTH THREE TIMES A DAY NEEDED active metformin ER 500 mg tablet,extended release 24 hr TAKE 2 TABLETS BY MOUTH EVERY DAY WITH THE EVENING MEAL active naproxen 500 mg tablet TAKE 1 TABLET BY MOUTH TWICE A DAY FOR 30 DAYS active omeprazole 20 mg capsule,delayed release TAKE 1 CAPSULE BY MOUTH EVERY DAY IN THE MORNING active tobramycin 0.3 %-dexamethasone 0.1 % eye drops,suspension INSTILL 1 DROP INTO BOTH EYES 4 TIMES A DAY active Tussin DM 10 mg-100 mg/5 mL oral syrup TAKE 10ml BY MOUTH EVERY 4 HOURS NEEDED active valsartan 320 mg tablet TAKE 1 TABLET BY MOUTH EVERY DAY active Problems Problem Status Onset Date Problem Type Date of Resoluti on Source Osteoarthritis of left knee joint active 2023-06-22 ProblemAct [facility]ONECT Osteoarthritis of right glenohumeral joint active 2023-10-11 ProblemAct [facility] T Encounters Encounter Type Encounter Reason Primary Diagnosis Location Date Ambulatory [facility] 09/20/2023 Ambulatory [facility] 09/20/2023 Ambulatory [facility] 09/20/2023 Ambulatory [facility] 09/20/2023 Ambulatory [facility] [place] 09/18/2023 Ambulatory [facility] [place] 06/25/2023 Ambulatory [facility] [place] 06/22/2023 Ambulatory [facility] [place] 06/28/2022 Ambulatory [facility] [place] 06/28/2022 Ambulatory [facility] [place] 06/27/2022 Ambulatory [facility] [place] 06/13/2022
--- OUTSIDE RECORDS SUMMARY | 2024-09-30 16:33 | XMS_ITS | Clinical Summary ---
Author Organization [facility] Address [address] [place] [id number] Care Team Providers Care Plater Hot Dip Name Role Phone Philomena De Primary Care Provider [phone] Allergies Active Allergy Reactions Criticality Noted Date [...] 0 04/22/2012 Active ergocalciferol (VITAMIN D2) capsule 43035 units Take 1,000 Units by mouth. 0 [...] Screening (DEXA Scan) 2015 Influenza Vaccine (#1) 2024 11/05/2009 RSV Adult > 60+ Yrs or (1 - 1-dose 75+ series) 2025 Pneumococcal Vaccine Completed 12/06/2016, 10/06/2015 Hepatitis B Vaccines Aged Out No long er eligible based on patient's age to complete this topic RSV Ped < 20 months Aged Out No longe r eligible based on patient's age to complete this topic Care Teams Plater Hot Dip Relationship Specialty Start Date End Date Philomena De DO [address] [phone] PCP - General Family Medicine 02/04/19
== END 2024-09-30 16:01 | disposition home or self-care (01) ==
LOC: HO.HSM 15:17
PROVIDERS: PCP Internal Medicine; Referring Provider Internal Medicine; Visit Provider Registered Nurse
DX: G31.84 Mild cognitive impairment of uncertain or unknown etiology (principal)
CPT/HCPCS: 99214

== ENCOUNTER → 2024-09-30 15:16 | Outpatient (BNVA) | payer OTHER, SELFPAY | PROVIDERS: PCP Internal Medicine; Referring Provider Internal Medicine; Visit Provider Registered Nurse | DX: G31.84 Mild cognitive impairment of uncertain or unknown etiology (principal); I10 Essential (primary) hypertension; E11.9 Type 2 diabetes mellitus without complications | CPT/HCPCS: 99212 ==

== ENCOUNTER 2025-01-07 09:17 | Outpatient (AMB) | payer OTHER, SELFPAY ==
--- NOTE | 2025-01-07 09:42 | MHC.OFFVIS ---
Intake Visit Reasons: 6 months follow up Accompanied by: Daughter Allergies No Known Allergies Allergy (Verified 01/07/25 09:45) Medication List - Last Reconciled 01/07/25 by Philomena Whitehead CNP aspirin 81 mg PO DAILY donepezil 10 mg PO BEDTIME 90 days gabapentin 300 mg PO BEDTIME memantine (Namenda) 5 mg PO BID 30 days metformin 500 mg PO BID HPI Comments Details: 74-year-old woman with diabetes, hypertension, and MCI. She began with short-term memory problems around 2022. She has education up to grade 6. She worked in [employer] and retired at the age of 68. She lives downstairs from her daughter and her daughter manages her finances. She could be forgetful and misplace things. She was doing okay. Memory was stable. She did not start memantine as she did not receive medication from pharmacy. She was driving locally without issue. She was walking with cane, no falls. Mood was okay. Sleep was okay. COUNTS INCLUDE 234 BEDS AT THE [facility] Medical History (Updated 09/30/24 @ 15:33 by Philomena Whitehead CNP) MCI (mild cognitive impairment) Review of Systems Const Denies chills, Denies daytime sleepiness, Denies difficulty sleeping, Denies fatigue, Denies fever(s), Denies frequent falls, Denies headache(s), Denies increased appetite, Denies poor appetite, Denies snoring, Denies weakness, Denies weight gain and Denies weight loss Eyes Denies loss of vision ENT Denies vertigo, Denies dizziness, Denies headache(s) and Denies neck pain Card Denies chest pain at rest, Denies chest pain with activity, Denies syncope, Denies leg edema, Denies palpitations, Denies dyspnea and Denies dyspnea on exertion Resp Denies cough, Denies dyspnea, Denies dyspnea on exertion and Denies snoring GI Denies abdominal pain, Denies constipation, Denies heartburn, Denies diarrhea and Denies nausea Denies urinary frequency, Denies urinary incontinence and Denies urinary urgency Musc Denies abnormal gait, Denies back pain, Denies myalgias, Reports arthralgias, Denies neck pain, Denies numbness and Denies tingling Neuro Denies abnormal gait, Denies vertigo, Denies dizziness, Denies syncope, Denies frequent falls, Denies headache(s), Denies lack of coordination, Denies loss of vision, Reports memory loss, Denies numbness, Denies Other visual disturbances, Denies restless legs, Denies seizure-like activity, Denies tingling, Denies paresthesias, Denies tremor(s) and Denies weakness Psych Denies anxiety, Denies depression, Denies auditory hallucinations, Reports memory loss and Denies visual hallucinations Endo Denies fatigue and Denies palpitations Physical Exam Const Other: General Appearance:? normal, in no acute distress. Heart:? S1, S2 normal, no murmurs. Lungs:? clear anteriorly and posteriorly. Musculoskeletal:? normal. Extremities:? no edema. Psych:? alert, as below. Neuro Other: Abnormal Neurological Findings:?MMSE 26/30. Walking with cane.? Mental Status: alert, as below. Cranial Nerves: Pupils are equal, round, and reactive to light. External ocular muscles are intact. Visual fair are full, no ptosis. Face is symmetrical, no facial weakness or droop. Facial sensations are normal. Tongue protrudes in midline. Palate elevates symmetrically. Shoulder shrugging is normal Motor Examination: Normal muscle tone, bulk and strength. No atrophy or fasciculations. No drift of the extended upper extremities. DTR 2+. Plantars are flexor. Sensory Exam: Normal light touch, temperature, pinprick, vibration, and joint-position sensations. Rhomberg sign is absent. Coordination: No ataxia. No titubation. Gait Exam: With cane. Cerebellar Signs: [id number]-vx-[id number] is okay. Extrapyramidal System: No tremor, rigidity with normal facial expressions. No bradykinesia. No bradyphrenia. Normal arm swing and posture. No propulsion or retropulsion. Speech: Normal. MMSE Level of Consciousness: Alert. Orientation: Knows correct year, month, date, day and season. Knows correct city, county and state. Knows correct location and floor. Registration: Able to register 3 objects. Attention: Serial 7's performed accurately to 93. Recall: Able to recall 1 out of 3 objects. Language: Normal spontaneous speech, fluency, repetition, naming, comprehension, reading, and writing. Total Score: 26/30. Results Reviewed Results Reviewed: [address] [address] XRay Report Signed Patient: Kaya Mckinley MR#: [id number] : 1950 Acct:[id number] Age/Sex: 74 / F ADM Date: 05/29/24 Loc: HO.XRAY Attending Dr: Sandy Ortiz MD Ordering Physician: Sandy Ortiz MD Date of Service: 05/29/24 Procedure(s): XR chest 4 views Accession Number(s): [id number] cc: Sandy Ortiz MD~ EXAMINATION: XR CHEST 4 OR MORE VIEWS HISTORY: PAIN COMPARISON: There are no prior studies for comparison. FINDINGS: PA, lateral, and bilateral oblique views of the chest are submitted. The lungs are expanded and clear. There is no pleural effusion, pneumothorax, or pulmonary vascular congestion. The heart is normal in size. The aorta is calcified. There is degenerative disc disease of the spine. XR/XR chest 4 views IMPRESSION: Clear lungs. Electronically signed by: Redd Porter MD 05/29/2024 02:57 PM EDT RP [place] [address] CT Scan Report Signed Patient: Kaya Mckinley MR#: [id number] : 1950 Acct:[id number] Age/Sex: 73 / F ADM Date: 12/25/23 Loc: HO.CT Attending Dr: Sandy Ortiz MD Ordering Physician: Sandy Ortiz MD Date of Service: 12/25/23 Procedure(s): CT head/brain wo IV con Accession Number(s): [id number] cc: Garret Rose MD; Sandy Ortiz MD~ EXAMINATION: CT HEAD WITHOUT CONTRAST CLINICAL INFORMATION: Mild cognitive impairment COMPARISON: None available. TECHNIQUE: Contiguous axial imaging was performed from the skull base to vertex without intravenous administration of contrast. This CT examination was performed using dose optimization techniques as appropriate, variously including the following: *Automated exposure control *Adjustment of mA and/or kV according to patient size (this includes techniques or standardized protocols for targeted exams where dose is matched to indication/reason for exam; i.e. extremities or head) *Use of iterative reconstruction technique DLP: 753 mGy-cm FINDINGS: There is mild prominence to the sulci and ventricles. No intra or extra-axial fluid collection or hemorrhage, mass, or mass effect. Calvarium intact. CT/CT head/brain wo IV con IMPRESSION: No acute intracranial pathology. Electronically signed by: Nitin Garsia MD 12/25/2023 11:26 AM EST RP 08/2023 labs ok 09/14/2023 EEG WNL Assessment & Plan Assessment & Plan (1) MCI (mild cognitive impairment): Code(s): G31.84 - Mild cognitive impairment of uncertain or unknown etiology Category: Medical Plan: She did not receive memantine and medication was resent. Start memantine 5mg 1 tablet twice a day, use/side effects reviewed. Continue donepezil 10mg 1 tablet at bedtime. Stay physically and socially active, use cane. Medications: Refilled memantine (Namenda) 5 mg PO BID 60 tabs 3RF 30 days Coding Level of Care Code Est Pt Level 4 (23955) Diagnoses MCI (mild cognitive impairment) G31.84
--- OUTSIDE RECORDS SUMMARY | 2025-01-07 10:15 | XMS_ITS | Data Portability ---
Author Organization [place] [facility] [place] Address [address] [place] [address] Care Team Providers Care Director Of [facility] Name Role Phone DANIELNAOMI Referring Provider Unavailable Assessment Encounter Date Assessment Date Assessment LastModified by Organization Details LastModified Time 06/22/2023 06/22/2023 73-year-old fema le with left knee pain. History examination and x-rays are consistent with osteoarthritis. After discussion regarding treatment options she wishes to proceed with viscosupplementation injections. Follow-up pending insurance authorization. *She will require updated x-rays of her left knee on her return visit to this office. A separate follow-up visit will be scheduled with one of our other providers for evaluation of her shoulder pain. This patient was seen and evaluated by Magaly Caba MS, PA-C in indirect conjunction with documenting/supervisin g provider Bryant Miranda MD. He agrees with history, physical examination, tests/diagnostic imaging, and treatment plan. This document was generated using voice recognition software. As a result, there may be unintended spelling, grammatical and/or textual errors. Not available 06/22/2023 14:01:56 07/05/2023 07/05/2023 The above findin gs were discussed in detail today with the patient. They have evidence of shoulder calcific tendinitis. Pathology and expected prognosis were discussed with the patient today. Treatment options include conservative treatment, anti-inflammatories, activity modification, a cortisone injection, or possibly an MRI and consideration for shoulder surgery. They would not like surgery at this point would like a steroid injection. She got good relief from her last injection. Risk and benefits of steroid injection were discussed with the patient today, they understand these risks and would like to proceed. They tolerated the procedure well. I let them know it can take 2 days to 2 weeks start working after 6 weeks to take its full effect. They can take anti-inflammatories, ice, and rest or do activity medication in the meantime to help with the pain. I will see them back for follow-up in 3 months for repeat evaluation. All of their questions were answered, they are in agreement with the plan. Not available 07/10/2023 18:17:48 09/20/2023 09/20/2023 HPI: Patient presents for Synvisc One viscosupplementation injection for the treatment of left knee pain. All questions are answered to the patient's satisfaction. Exam: Knee(s) examined to show no sign of infection. Skin is intact. Score of 2 or more on Kellgren Asa scale. Tenderness to palpation of joint line. Distal checks are intact. Assessment/Plan: Knee pain secondary to osteoarthritis. See the attached procedure note. Follow up per viscosupplementation protocol. Follow up sooner with any problems. This patient was seen and evaluated by Magaly Caba MS, PA-C in indirect conjunction with documenting/supervisin g provider Bryant Miranda MD. He agrees with history, physical examination, tests/diagnostic imaging, and treatment plan. 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 Pathology is good prognosis were discussed. We discussed treatment options with her and her daughter which include activity modification, anti-inflammatories, physical therapy, consideration for another steroid injection, or consideration for surgery. She had considered surgery in the past however she feels that the injections are helping and she would like to proceed with another injection today. Details of injection and as well as risks were discussed, including but not limited to infection, bleeding, nerve injury, no improvement, worsening of symptoms, flare reaction, skin depigmentation, and lipodystrophy. I let them know it can take 2 days to 2 weeks to start working and up to 6 weeks to take its full effect. They understand this and gave verbal consent. They tolerated the procedure well. She will return to see us and see our shoulder surgeon who will be joining us next month, he will resume care and discussed with her further treatment options if she would like to hear about surgical procedures. She will return as needed. All of her questions were answered, she is in agreement the plan. Not available 10/11/2023 14:56:08 Plan of Treatment Reminders Order Date Submit Date Provider Last Modified By Organization Details Last Modified Time Details Appointments None recorded . Lab None recorded . Referral None recorded . Procedures intra-ar ticular injectio n, knee, viscosup plement (PROC) - Please check insuranc e for Vis[employer] Authoriz ation, insuranc e preferre d med. Choose One: 3 series or 1 series * Knee Laterali ty: Left 2023 024 [email or web address] Not available 4 10:04:58 Surgeries None recorded . Imaging XR, knee, 4 or more view 2023 024 [email or web address] [facility], [address], [place], [address], 4 15:11:42 XR, shoulder , 2 or more view 2023 024 [facility], [address], [place], [address], 4 22:51:40 XR, shoulder , 2 or more view 2023 024 [facility], [address], [place], [address], 4 22:51:40 Medication Orders Synvisc- One 48 mg/6 mL intra-ar ticular syringe 2023 024 [id number], [address], [place], [address], 4 14:43:05 lidocain e (PF) 10 mg/mL (1 %) injectio n solution 2023 024 [id number], [address] [place], [address], 22:51:40 triamcin olone acetonid e 40 mg/mL suspensi on for injectio n 2023 024 [id number], [address] [place], [address], 22:51:40 Patient TargetsNo targets recorded. Patient Instructions Encounter Date Encounter Id Patient Instructions Last Modified By Organization Details Last Modified Time 07/05/2023 [id number] You have been provided with a cortisone injection in order to reduce the pain and inflammation that you are experiencing. The injection consists of two medications. Cortisone (an anti-inflammatory that will take 48-72 hours to take effect) and Lidocaine (a numbing agent that will last 2-3 hours). Please note that not everyone will have a lasting response following the injection. PATIENT INSTRUCTIONS Once the Lidocaine wears off, you may have an increase in your pain. I recommend icing the affected area for 20 minutes 3-4 times per day. It is recommended that you refrain from any high level activities using the joint or limb that was injected for approximately 24-48 hours. Normal day-to-day activities are generally not a problem. POSSIBLE SIDE EFFECTS Individuals with dark complexions may experience some skin discoloration locally at the site of the injection. There is the possibility of an increase in discomfort within 48 hours following the injection. This is called abbey marcum . To help minimize the chances of this, please see the post-injection instructions above. There is a less than 1% chance of an infection. If you notice any signs of infection (redness, warmth, drainage, fever greater than 100 degrees) please call our office or contact us through the portal FELIPE. [email or web address] Not available 07/10/2023 18:17:53 3 views of bilat eral shoulders were ordered and reviewed today, this demonstrates bilateral calcific tendinitis with mild joint space narrowing. There is evidence of previous distal clavicle excision on the left side. There are mild arthritic changes at the AC joint. There is diffuse demineralization of the bones. Not available 07/10/2023 18:16:51 09/20/2023 [id number] view X-ray albert dy obtained during today's office encounter show evidence of moderate left knee osteoarthritis. There is joint space narrowing, subchondral sclerosis and marginal osteophytosis. Kellgren-Asa grade 2. No evidence of acute fracture or osteolytic findings. Not available 09/20/2023 14:41:54 10/11/2023 [id number] You have been provided with a cortisone injection in order to reduce the pain and inflammation that you are experiencing. The injection consists of two medications. Cortisone (an anti-inflammatory that will take 48-72 hours to take effect) and Lidocaine (a numbing agent that will last 2-3 hours). Please note that not everyone will have a lasting response following the injection. PATIENT INSTRUCTIONS Once the Lidocaine wears off, you may have an increase in your pain. I recommend icing the affected area for 20 minutes 3-4 times per day. It is recommended that you refrain from any high level activities using the joint or limb that was injected for approximately 24-48 hours. Normal day-to-day activities are generally not a problem. POSSIBLE SIDE EFFECTS Individuals with dark complexions may experience some skin discoloration locally at the site of the injection. There is the possibility of an increase in discomfort within 48 hours following the injection. This is called abbey marcum . To help minimize the chances of this, please see the post-injection instructions above. There is a less than 1% chance of an infection. If you notice any signs of infection (redness, warmth, drainage, fever greater than 100 degrees) please call our office or contact us through the portal FELIPE. Not available 10/11/2023 14:54:26 3 views of bilat eral shoulders were ordered and reviewed today, this demonstrates bilateral calcific tendinitis with mild joint space narrowing. There is evidence of previous distal clavicle excision on the left side. There are mild arthritic changes at the AC joint. There is diffuse demineralization of the bones. Not available 10/11/2023 14:54:18 Reason for Referral None Reported. Problems Name Problem SNOMED Code Status Onset Date Resolution Date Notes Provider Name and Address Organization Details Recorded Time Disorder of shoulder 406231959 Active 2018 Shoulder impingeme nt, right Not Available [facility] 5 23:34:36 Osteoarth ritis of left knee joint 13250850734 9109 Active 2023 MAGALY CABA PA-C [address], [place], [address] , [place] - [facility] 4 14:02:13 Osteoarth ritis of right glenohume ral joint 82289380770 82691 Active 2023 Sandra Fernandes MD [address], [place], [address] , [place] - [facility], [facility] 4 14:56:33 Problem Notes None recorded. Procedures Surgical History Date Name Laterality Status Provider Name and Address Organization Details Recorded Time 4 LES Subacromial Shoulder Inj completed Sandra Fernandes MD [address], [place], [address], [place] - [facility], [facility] 10/11/2023 14:54:05 4 Synvisc-One Knee Inj w/US completed MAGALY CABA PA-C [address], [place], [address], [place] - [facility], [facility] 09/20/2023 14:42:14 4 LES Subacromial Shoulder Inj completed Sandra Fernandes MD [address], [place], [address], [place] [facility] 07/10/2023 18:15:08 Imaging Results None recorded. Procedure Notes None recorded. Medical Equipment None Reported. Allergies Allergen ID Allergen Name Allergen Category Reaction Reaction Severity Criticality Documentation Date Start Date Code Code System Note Provider Name and Address Organization Details Recorded Time 89933 oxycodone medicatio n Not available Not available Not available 11/04/20242016 7804 RxNorm itchy Not Available [facility] 5 01:25:30 56183 acetamino phen / oxycodone medicatio n Not available Not available Not available 11/04/2024 84479 3 RxNorm Not Available [facility] 5 01:25:30 Medications Name Sig Start Date Stop Date Status Note LastModified by Organization Details LastModified Time pulse oximeter leader USE DAILY EVERY 4 HOURS active Not Available Not Available No t Available cyclobenzap rine 10 mg tablet TAKE 1 TABLET BY MOUTH THREE TIMES A DAY NEEDED active Not Available Not Available No t Available Tussin DM 10 mg-100 mg/5 mL oral syrup TAKE 10ml BY MOUTH EVERY 4 HOURS NEEDED active Not Available Not Available No t Available amoxicillin 500 mg capsule TAKE 1 CAPSULE BY MOUTH EVERY 8 HOURS FOR 4 DAYS active Not Available Not Available No t Available atorvastati n 40 mg tablet TAKE 1 TABLET BY MOUTH EVERYDAY AT BEDTIME active Not Available Not Available No t Available metformin 500 mg tablet TAKE 1 TABLET BY MOUTH TWICE A DAY WITH FOOD active Not Available Not Available No t Available OneTouch Ultra Control solution USE TO CHECK FASTING BLOOD SUGAR TWICE A DAY active Not Available Not Available No t Available cetirizine 10 mg tablet TAKE 1 TABLET BY MOUTH EVERY DAY active Not Available Not Available No t Available ibuprofen 800 mg tablet TAKE 1 TABLET BY MOUTH EVERY 8 HOURS NEEDED FOR PAIN active Not Available Not Available No t Available benzonatate 200 mg capsule TAKE 1 CAPSULE BY MOUTH 3 TIMES A DAY FOR 7 DAYS NEEDED FOR COUGH active Not Available Not Available No t Available ranitidine 300 mg tablet Take 300 mg by mouth. 06/05 completed Not Available Not Available Not Available meloxicam 15 mg tablet TAKE 1 TABLET BY MOUTH EVERY DAY active Not Available Not Available No t Available prednisone 20 mg tablet TAKE 3 TABLETS BY MOUTH DAILY FOR 2 DAYS THEN 2 TABLET DAILY FOR 2 DAYS THEN 1 TABLET FOR 2 DAYS active Not Available Not Available No t Available alendronate 70 mg tablet alendrona te 70 mg tablet active Not Available Not Available No t Available amlodipine 5 mg tablet TAKE 1 TABLET BY MOUTH EVERY DAY active Not Available Not Available No t Available sulfamethox azole 800 mg-trimetho prim 160 mg tablet TAKE 1 TABLET BY MOUTH TWICE A DAY active Not Available Not Available No t Available aspirin 81 mg tablet,tamara yed release TAKE 1 TABLET (81 MG) BY MOUTH IN THE MORNING active Not Available Not Available No t Available triamcinolo ne acetonide 0.1 % topical cream TAKE 1 APPLICATI ON (TOPICAL) 2 TIMES PER DAY (ITCHING) FOR 14 DAYS DO NOT USE ON GROIN OR FACE. active Not Available Not Available No t Available amitriptyli ne 25 mg tablet 1 tablet. 2012 active Not Available Not Available Not Avai lable methocarbam ol 750 mg tablet TAKE 1 TABLET BY MOUTH EVERY 6 HOURS NEEDED FOR MUSCLE SPASM active Not Available Not Available No t Available triamcinolo ne acetonide 0.025 % topical cream APPLY 1 APPLICATI ON (TOPICAL) 2 TIMES PER DAY (ITCHING) FOR 14 DAYS AVOID THE EYES AND LIPS. active Not Available Not Available No t Available Moerae MatrixToZouxiu Ultra Test strips USE TO CHECK FASTING TWICE A DAY active Not Available Not Available No t Available triamcinolo ne acetonide 40 mg/mL suspension for injection Take 40 mg by injection route. 2023 active Not Available Not Available Not Avai lable methylpredn isolone acetate 40 mg/mL suspension for injection 03/10 completed Not Available Not Available Not Available Banophen 25 mg tablet TAKE 1 TABLET BY MOUTH EVERYDAY AT BEDTIME active Not Available Not Available No t Available lidocaine 5 % topical patch Place 1-3 patches onto the skin. 2016 active Not Available Not Available Not Avai lable valsartan 320 mg tablet TAKE 1 TABLET BY MOUTH EVERY DAY active Not Available Not Available No t Available gabapentin 300 mg capsule TAKE 1 CAPSULE BY MOUTH EVERYDAY AT BEDTIME active Not Available Not Available No t Available omeprazole 20 mg capsule,del ayed release TAKE 1 CAPSULE BY MOUTH EVERY DAY IN THE MORNING active Not Available Not Available No t Available montelukast 10 mg tablet Take 10 mg by mouth every evening. 2019 active Not Available Not Available Not Avai lable hydroxyzine HCl 25 mg tablet TAKE 1 TABLET (ORAL) 3 TO 4 TIMES PER DAY (ITCHING) FOR 5 DAYS active Not Available Not Available No t Available aspirin 81 mg tablet Take 81 mg by mouth. 02/28 completed Not Available Not Available Not Available ergocalcife rol (vitamin D2) 1,250 mcg (50,000 unit) capsule Take 1,000 Units by mouth. active Not Available Not Available No t Available ibuprofen 600 mg tablet TAKE 1 TABLET BY MOUTH THREE TIMES A DAY NEEDED active Not Available Not Available No t Available hydroxyzine HCl 10 mg tablet TAKE 1 TABLET BY MOUTH 3 TIMES DAILY NEEDED FOR ITCHING (INSOMNIA ) FOR UP TO 360 DAYS. active Not Available Not Available No t Available metformin ER 500 mg tablet,exte nded release 24 hr TAKE 2 TABLETS BY MOUTH EVERY DAY WITH THE EVENING MEAL active Not Available Not Available No t Available naproxen 500 mg tablet TAKE 1 TABLET BY MOUTH TWICE A DAY FOR 30 DAYS active Not Available Not Available No t Available tobramycin 0.3 %-dexametha sone 0.1 % eye drops,suspe nsion INSTILL 1 DROP INTO BOTH EYES 4 TIMES A DAY active Not Available Not Available No t Available valsartan 160 mg tablet Take 160 mg by mouth daily. 2016 active Not Available Not Available Not Avai lable cyclobenzap rine 5 mg tablet TAKE 1 TABLET BY MOUTH THREE TIMES A DAY FOR 5 DAYS active Not Available Not Available No t Available lactulose 10 gram/15 mL oral solution TAKE 30 ML BY MOUTH ONCE A DAY NEEDED active Not Available Not Available No t Available chlorhexidi ne gluconate 0.12 % mouthwash SWIG 2 TIMES PER DAY FOR 30 SECONDS WITH 1/2 OZ AND EXPECTORA TE active Not Available Not Available No t Available lidocaine (PF) 10 mg/mL (1 %) injection solution Take 1 mL by injection route. 2023 active Not Available Not Available Not Avai lable ProAir HFA 90 mcg/actuati on aerosol inhaler 2018 active Not Available Not Available Not Avai lable coenzyme [id number] 100 mg-5 unit capsule Take 200 mg by mouth. active Not Available Not Available No t Available diclofenac 1 % topical gel Apply topically . active Not Available Not Available No t Available melatonin 5 mg tablet Take 1 tablet by mouth every night at bedtime. 2019 active Not Available Not Available Not Avai lable Synvisc-One 48 mg/6 mL intra-artic ular syringe Take 6 mL by intraarti cular route. 2023 active Not Available Not Available Not Avai lable Linzess 290 mcg capsule TAKE 1 CAPSULE BY MOUTH EVERY DAY active Not Available Not Available No t Available omeprazole 20 mg delayed release,dis integrating tablet Take by mouth. active Not Available Not Available No t Available OneTouch Ultra2 Meter USE DAILY TO CHECK BLOOD SUGAR DIRECTED active Not Available Not Available No t Available OneTouch Delica Plus Lancet 33 gauge USE TO CHECK FASTING BLOOD SUGAR TWICE A DAY active Not Available Not Available No t Available Paxlovid 300 mg (150 mg x 2)-100 mg tablets in a dose pack TAKE THREE TABLETS BY MOUTH TWICE DAILY FOR 5 DAYS DIRECTED active Not Available Not Available No t Available Fluzone High-Dose Triv (PF) 180 mcg/0.5 mL IM syringe TO BE ADMINISTE RED BY PHARMACIS T FOR IMMUNIZAT ION 2016 active Not Available Not Available Not Avai lable Vitals Date Recorded Body height Body mass index (BMI) Body weight Provider Name and Address Organization Details Last Updated DateTime 06/22/2023 152.4 cm 30.3 kg/m2 [address] [place] - [facility] 06/22/2023 13:47:55 Date Recorded Body height Provider Name an d Address Organization Details Last Updated DateTime 07/05/[address]23 [address] [place] [facility] 07/05/2023 09:48:14 Date Recorded Body height Body mass index (BMI) Body weight Provider Name and Address Organization Details Last Updated DateTime 09/20/2023 152.4 cm 30.3 kg/m2 [address] [place] - [facility] 09/20/2023 14:28:38 Date Recorded Body height Body mass index (BMI) Body weight Provider Name and Address Organization Details Last Updated DateTime 10/11/2023 152.4 cm 30.3 kg/m2 [address] [place] - [facility] 10/11/2023 14:17:41 Social History None recorded. Functional Status Question Answer Note LastModified by Organization D etails LastModified Time What is your level of alcohol consumption? None [email or web address] Information not available 06/22/2023 Mental Status None recorded. Family History Nothing Reported. Medical History Condition Response Diabetes Y Heart Attack ([place]) Y Hypertension Y Asthma Y Gynecological HistoryNo gynecological history recorded. Obstetrics History GPAL:G 0 P 0 0 0 0 Past Encounters Encounter ID Performer Location Encounter Start Date Encounter Closed Date Diagnosis/Indication Diagnosis SNOMED-CT Code Diagnosis ICD10 Code Diagnosis IMO Codes Diagnosis Note [id number] [facility] [address] [facility] [address] [place] [address] 06/22/2023 13:37:25 06/22/2023 15:16:45 Osteoarthritis of left knee joint [id number] 15294 M17.12 Additional diagnosis detail: Primary osteoarthr itis of left knee [id number] MD TO[facility] [address] [place] [address] 07/05/2023 09:46:35 07/05/2023 11:02:07 Chronic pain of right upper limb [id number] 0428785 M25.511 G89.29 Additional diagnosis detail: Chronic right shoulder pain Chronic pa in of left upper limb 0696913720 9100260 M25.512 G89.29 Additional diagnosis detail: Chronic left shoulder pain [id number] [facility] [address] [place] [address] 09/20/2023 14:17:48 09/20/2023 15:11:41 Osteoarthritis of left knee joint 9238984369 48074 M17.12 Additional diagnosis detail: Osteoarthr itis of left knee, unspecifie d osteoarthr itis type [id number] MD TOY [facility] [address] [place] [address] 10/11/2023 14:11:48 10/11/2023 14:51:55 Osteoarthritis of right glenohumeral joint 3225245384 824967 M19.011 [id number] Health Concerns Section Related Observation LastModified by Organization Detai ls LastModified Time None Recorded Concern Status LastModified by Organization Details LastModified Time None Recorded Advance Directives Directive None Recorded Payers Insurance Date Sequence Insurance Name Policy Number Policy Watts Covered Member ID Watts Member ID Guarantor Name 09/20/2023 1 [employer] (MEDICARE REPLACEMENT/ADV ANTAGE - HMO) Kaya Mckinley [id number] Kaya Mckinley 10/11/2023 1 [facility] - DOS ON OR AFTER 2022 - RETIREMENT OPTIONS (MEDICARE REPLACEMENT/ADV ANTAGE - HMO) Kaya Mckinley [id number] Kaya Youngirez Notes Date Note Type Note Provider Name and Address Organization Details Recorded Time 4 text/html 73-year-old female presents with chief complaint of left knee pain. She is known to have osteoarthritis of the left knee. She has undergone cortisone injections in the past. She states that they were initially helpful but gradually waned in their effectiveness. She engages me in conversation about the role of viscosupplementation injections. She reports that she was indicated for total joint arthroplasty by Dr. Osborn prior to his departure from this practice. She states that she is not inclined to take on joint replacement surgery at this time. She also reports ongoing issues with both of her shoulders. MAGALY CABA PA-C [address] [address], [place], [address], [place] - [facility] 06/22/2023 14:04:26 4 text/html ROS as noted in the HPI This is a 73-year-old female who presents with bilateral, left worse than right shoulder pain. She had been previously seen by Dr. Núñez for her shoulders, she thinks last time was last year during which time she had an injection which did help her pain. She also had surgery to the left shoulder many years ago however she is not sure what type of surgery she had. She describes pain with activities and at night. This is localized mostly in the posterior shoulder. Denies any numbness or tingling or radiating pain. Her right 1 does not bother her much today. Sandra Fernandes MD [address] [address], [place], [address], [place] - [facility] 07/10/2023 18:18:46 4 text/html ROS as noted in the HPI She presents for follow-up of her left shoulder pain from calcific tendinitis and glenohumeral joint arthritis. She was seen on 07/05/2023 when she was given a steroid injection. She said the injection helped for a few months however her pain is starting to return. She also describes pain in her trapezial area and neck paraspinals as well as on her right mid thoracic area. She has difficulty with range of motion of the left shoulder. She is interested in another injection today. Sandra Fernandes MD [address] [facility] [address], [place], [address], [place] [facility], P 12/13/2023 08:59:34 OBGyn Episode No OBEpisode recorded.
--- OUTSIDE RECORDS SUMMARY | 2025-01-07 10:15 | XMS_ITS | Data Portability ---
Author Organization [place] - [facility], Allergy Address [address] [place] [phone] Assessment Encounter Date Assessment Date Assessment LastModified by Organization Details LastModified Time 10/16/2024 10/16/2024 74 year old female presents to re-establish care with the practice for yearly ear cleanings due to excessive cerumen build up. Physical exam today reveals clear EACs, intact TMs, and well-aerated middle ear spaces bilaterally. Recommend 3 drops of mineral oil into each ear twice weekly to minimize cerumen build up. Patient will return in 1 year for cerumen removal or sooner with any new concerns. Stacie Chou PA-C assisted with visit and documentation . [email or web address] Not available 10/16/2024 13:38:34 Plan of Treatment Reminders Order Date Submit Date Provider Last Modified By Organization Details Last Modified Time Details Appointments Establish ed 15 2025 11:15A M PABLO HOFFMAN Not available Not available Not available Lab None recorded. Referral None recorded. Procedures None recorded. Surgeries None recorded. Imaging None recorded. Medication Orders None recorded. Patient TargetsNo targets recorded. Patient InstructionsNo instructions recorded. Reason for Referral None Reported. Problems Name Problem SNOMED Code Status Onset Date Resolution Date Notes Provider Name and Address Organization Details Recorded Time Allergic rhinitis 77562535 Active 2021 Other allergic rhinitis; Note: Date Diagnosed : 2 2:20 PM (J30.89) Not Available [facility] 4 02:21:08 Sensorine ural hearing loss of bilateral ears 953655618 Active 2021 Sensorine ural hearing loss, bilateral ; Note: Date Diagnosed : 2 2:20 PM (H90.3) Not Available [facility] 4 02:20:42 Impacted cerumen of bilateral ears 69473131419 79182 Active 2021 Impacted cerumen, bilateral ; Note: Date Diagnosed : 2 1:08 PM (H61.23) Not Available [facility] 4 02:21:10 Excessive cerumen in ear canal 418607618 Active 2024 PABLO HOFFMAN [address] [place] [address], [place], [address] , [facility] - [facility] 5 13:29:42 Problem Notes None recorded. Medical Equipment None Reported. Medications Name Sig Start Date Stop Date Status Note LastModified by Organization Details LastModified Time Tussin DM 10 mg-100 mg/5 mL oral syrup active Medicatio n ID: [id number] Br and Name: Tussin DM Send Method: E-Prescri bed Subs Allowed: subs OK Specia l Instructi on: TAKE 10ml BY MOUTH EVERY 4 HOURS NEEDED Me dicationG enericNam e: Tussin DM Not Available Not Available Not Available atorvastat in 40 mg tablet TAKE 1 TABLET BY MOUTH EVERY DAY active Not Available Not Available No t Available metformin 500 mg tablet TAKE 1 TABLET BY MOUTH TWICE A DAY WITH FOOD active Not Available Not Available No t Available prednisone 10 mg tablet TAKE 4 TABS DAILY X 3 DAYS, 3 TABS X 3 DAYS, 2 TABS X 3 DAYS, 1 TAB X 3 DAYS active Not Available Not Available No t Available donepezil 5 mg tablet TAKE 1 TABLET AFTER MEALS ORALLY ONCE A DAY 30 DAY(S) active Not Available Not Available No t Available albuterol sulfate 2.5 mg/3 mL (0.083 %) solution for nebulizati on INHALE 1 VIAL VIA NEBULIZER EVERY 6 HOURS NEEDED FOR WHEEZING active Not Available Not Available No t Available cetirizine 10 mg tablet active Medicatio n ID: [id number] Br and Name: cetirizin e Send Method: E-Prescri bed Subs Allowed: subs OK Specia l Instructi on: TAKE 1 TABLET BY MOUTH EVERY DAY Medic ationGene ricName: cetirizin e Not Available Not Available Not Available tizanidine 4 mg tablet TAKE 1 TABLET (4 MG TOTAL) BY MOUTH 1 (ONE) TIME EACH DAY IF NEEDED FOR MUSCLE SPASMS. active Not Available Not Available No t Available benzonatat e 200 mg capsule TAKE 1 CAPSULE BY MOUTH THREE TIMES A DAY NEEDED FOR COUGH FOR 14 DAYS active Not Available Not Available No t Available donepezil 10 mg tablet TAKE 1 TABLET AFTER MEALS ORALLY ONCE A DAY 90 DAYS active Not Available Not Available No t Available meloxicam 15 mg tablet TAKE 1 TABLET (15 MG TOTAL) BY MOUTH ONE TIME EACH DAY. active Not Available Not Available No t Available prednisone 20 mg tablet TAKE 1 TABLET BY MOUTH TWICE A DAY FOR 5 DAYS active Not Available Not Available No t Available amlodipine 5 mg tablet active Medicatio n ID: [id number] Br and Name: amlodipin e Send Method: E-Prescri bed Subs Allowed: subs OK Specia l Instructi on: TAKE 1 TABLET BY MOUTH EVERY DAY Medic ationGene ricName: amlodipin e Not Available Not Available Not Available aspirin 81 mg tablet,del ayed release TAKE 1 TABLET BY MOUTH EVERY DAY active Not Available Not Available No t Available ondansetro n HCl 4 mg/5 mL oral solution TAKE 5ML BY MOUTH EVERY 8 HOURS NEEDED FOR NAUSEA active Not Available Not Available No t Available OneTouch Ultra Test strips CHECK SUGAR 2 TIMES DAILY active Not Available Not Available No t Available pantoprazo le 40 mg tablet,del ayed release TAKE 1 TABLET BY MOUTH EVERY DAY active Not Available Not Available No t Available valsartan 320 mg tablet TAKE 1 TABLET BY MOUTH EVERY DAY active Not Available Not Available No t Available Ear Drops (carbamide peroxide) 6.5 % INSTILL 5 DROPS INTO THE RIGHT EAR 2 TIMES A DAY FOR 7 DAYS active Not Available Not Available No t Available gabapentin 300 mg capsule TAKE 1 CAPSULE BY MOUTH EVERYDAY AT BEDTIME active Not Available Not Available No t Available omeprazole 20 mg capsule,de layed release active Medicatio n ID: [id number] Br and Name: omeprazol e Send Method: E-Prescri bed Subs Allowed: subs OK Specia l Instructi on: TAKE 1 CAPSULE BY MOUTH EVERY DAY IN THE MORNING M edication GenericNa me: omeprazol e Not Available Not Available Not Available bisacodyl 5 mg tablet,del ayed release TAKE 2 TABLETS BY MOUTH RIGHT BEFORE BEGINNING BOWEL PREP. SEE INSTRUCTI ONS PROVIDED BY THE OFFICE active Not Available Not Available No t Available ibuprofen 600 mg tablet TAKE 1 TABLET BY MOUTH EVERY 8 HOURS IF NEEDED FOR MILD PAIN. active Not Available Not Available No t Available albuterol sulfate HFA 90 mcg/actuat ion aerosol inhaler INHALE 2 PUFFS 4 TIMES A DAY NEEDED FOR WHEEZING/ SHORTNESS OF BREATH active Not Available Not Available No t Available hydroxyzin e HCl 10 mg tablet TAKE 1 TABLET BY MOUTH THREE TIMES A DAY active Not Available Not Available No t Available metformin ER 500 mg tablet,ext ended release 24 hr active Medicatio n ID: [id number] Br and Name: metformin Send Method: E-Prescri bed Subs Allowed: subs OK Specia l Instructi on: TAKE 2 TABLETS BY MOUTH EVERY DAY WITH THE EVENING MEAL Medi cationGen ericName: metformin Not Available Not Available Not Available amoxicilli n 875 mg-potassi um clavulanat e 125 mg tablet TAKE 1 TABLET BY MOUTH TWICE A DAY FOR 7 DAYS active Not Available Not Available No t Available memantine 5 mg tablet TAKE 1 TABLET ORALLY 2 TIMES A DAY FOR 30 DAYS active Not Available Not Available No t Available diclofenac 1 % topical gel APPLY 2 G TOPICALLY TWICE A DAY active Not Available Not Available No t Available GaviLyte-G 236 gram-22.74 gram-6.74 gram-5.86 gram oral solution PLEASE SEE ATTACHED FOR DETAILED DIRECTION S active Not Available Not Available No t Available Gavilax 17 gram/dose oral powder TAKE 17 G BY MOUTH 1 (ONE) TIME EACH DAY. DISSOLVE IN WATER/JUI CE FIRST active Not Available Not Available No t Available Senexon-S 8.6 mg-50 mg tablet TAKE 2 TABLETS BY MOUTH EVERY DAY active Not Available Not Available No t Available Linzess 145 mcg capsule TAKE 1 CAPSULE (145 MCG TOTAL) BY MOUTH ONCE DAILY active Not Available Not Available No t Available OneTouch Ultra2 Meter USE 1 EACH 2 (TWO) TIMES A DAY BEFORE MEALS. ONE TOUCH active Not Available Not Available No t Available Mounjaro 2.5 mg/0.5 mL subcutaneo us pen injector INJECT 2.5 MG SUBCUTANE OUSLY WEEKLY active Not Available Not Available No t Available Vitals Date Recorded Body height Body mass index (BMI) Body weight Provider Name and Address Organization Details Last Updated DateTime 10/16/2024 152.4 cm 29.3 kg/m2 85957.86 g Tess Motyka [place] - [facility] 10/16/2024 13:16:44 Social History None recorded. Functional Status None recorded. Mental Status None recorded. Family History Nothing Reported. Medical History No medical history recorded. Gynecological HistoryNo gynecological history recorded. Obstetrics History GPAL:G 0 P 0 0 0 0 Past Encounters Encounter ID Performer Location Encounter Start Date Encounter Closed Date Diagnosis/Indication Diagnosis SNOMED-CT Code Diagnosis ICD10 Code Diagnosis IMO Codes Diagnosis Note [id number] NADEEN DOUGHERTY PA-C [facility] [address] [address] 10/16/2024 13:10:54 10/16/2024 13:27:43 Ear and auditory finding 721607865 Z01.10 432031 History of ear disorder 783946938 Z78.9 76262607 Health Concerns Section Related Observation LastModified by Organization Detai ls LastModified Time None Recorded Concern Status LastModified by Organization Details LastModified Time None Recorded Advance Directives Directive None Recorded Payers Insurance Date Sequence Insurance Name Policy Number Policy Watts Covered Member ID Watts Member ID Guarantor Name 08/11/2024 1 [facility] - DOS ON OR AFTER 2022 - [employer] (MEDICARE REPLACEMENT/ADV ANTAGE - HMO) Kaya Mckinley [id number] Kaya Mckinley Notes Date Note Type Note Provider Name and Address Organization Details Recorded Time 10/16/2024 text/html ROS as noted in the HPI 74 year old female presents for cerumen removal. Patient was last seen in 11/2021 for bilateral cerumen debridement. Patient usually gets her ears cleaned once yearly by an ENT in [place], but that provider has retired. The patient felt her ears become blocked 3 months ago and she presented to an urgent care and had both of her ears cleaned via lavage. She believes her ears are clear today but wanted to reestablish care. Denies hearing loss, otalgia, otorrhea, dizziness, and tinnitus. HARSHA RAMIRES MD [address] [place] [address], [phone], [facility] - [facility] 10/19/2024 08:45:53 OBGyn Episode No OBEpisode recorded.
--- OUTSIDE RECORDS SUMMARY | 2025-01-07 10:15 | XMS_ITS | Clinical Summary ---
Author Organization [facility] Address [address] [place] [id number] Care Team Providers Care Snaker Driving Horses Name Role Phone Philomena De Primary Care Provider [phone] Allergies Active Allergy Reactions Criticality Noted Date [...] 0 04/22/2012 Active ergocalciferol (VITAMIN D2) capsule 81660 units Take 1,000 Units by mouth. 0 [...] age to complete this topic Care Teams Snaker Driving Horses Relationship Specialty Start Date End Date Philomena De DO [address] [phone] PCP - General Family Medicine 02/04/19
--- OUTSIDE RECORDS SUMMARY | 2025-01-07 10:15 | XMS_ITS | Clinical Summary ---
Author Organization [facility] Address [address] [place] [address] [address] [place] [address] Care Team Providers Care Sap Business Objects Consultant Name Role Phone Unavailable Primary Care Provider [...] Tobacco Screening 1962 Hepatitis C Screening 1968 RSV Patients and Patients Aged 60 years or older (1 - Risk 50-74 years 1-dose series) 2000 Zoster Vaccines (1 of 2) 2000 Mammogram 12/28/2021 12/29/2019, 12/13, 12/29/2019 COVID-19 Vaccine (4 - season) 2024 02/23/2021, 05/06/2020, 04/08/2020 Influenza Vaccine (#1) 2024 [...] LDL-C. Albert SS et al. KEITH. 2013;310(19): 4411-4340 (http://education.SPARQCode/faq/DTQ977) Non-HDL Cholesterol 122 <130 mg/dL (calc) [facility]ATION [...] MD LAB BLOOD ORDERABL ES Final Result [facility] [address] * Mammography Report 1 (12/29/2019 10:25 [...]
--- OUTSIDE RECORDS SUMMARY | 2025-01-07 10:15 | XMS_ITS | Continuity of Care Document ---
Author Organization [place] - [facility], [facility] Address [address] [place] [address] Assessment Encounter Date Assessment Date Assessment LastModified [...] PA-C assisted with visit and documentation . [email or web address] Not available 10/16/2024 13:38:34 Plan of Treatment [...] Address Organization Details Recorded Time Allergic rhinitis 26811068 Active 2021 Other allergic rhinitis; Note: Date Diagnosed : 2 2:20 PM (J30.89) Not Available [facility] 4 02:21:08 Sensorine ural hearing loss of bilateral ears 726085023 Active 2021 Sensorine ural hearing loss, bilateral ; Note: Date Diagnosed : 2 2:20 PM (H90.3) Not Available [facility] 4 02:20:42 Impacted cerumen of bilateral ears 15585712753 22242 Active 2021 Impacted cerumen, bilateral ; Note: Date Diagnosed : 2 1:08 PM (H61.23) Not Available [facility] 4 02:21:10 Excessive cerumen in ear canal 354151222 Active 2024 PABLO HOFFMAN [address] [facility],[place] [address], [place], [address] , [facility] - [facility] 5 13:29:42 Problem Notes None recorded. Medical Equipment None Reported. Medications Name Sig Start Date Stop Date Status Note LastModified by Organization Details LastModified Time Tussin DM 10 mg-100 mg/5 mL oral syrup active Medicatio n ID: [id number] Br and Name: Tussin DM Send Method: [...] 10 mg tablet active Medicatio n ID: [id number] Br and Name: cetirizin e Send Method: [...] 5 mg tablet active Medicatio n ID: [id number] Br and Name: amlodipin e Send Method: [...] capsule,de layed release active Medicatio n ID: [id number] Br and Name: omeprazol e Send Method: [...] release 24 hr active Medicatio n ID: [id number] Br and Name: metformin Send Method: E-Prescri [...] Updated DateTime 10/16/2024 152.4 cm 29.3 kg/m2 92802.86 g Tess Swenson [place] - [facility] 10/16/2024 13:16:44 Social History None recorded. Functional Status None recorded. Mental Status None recorded. Family History Nothing Reported. Medical History No medical history recorded. Gynecological HistoryNo gynecological history recorded. Obstetrics History GPAL:G 0 P 0 0 0 0 Past Encounters Encounter ID Performer Location Encounter Start Date Encounter Closed Date Diagnosis/Indication Diagnosis SNOMED-CT Code Diagnosis ICD10 Code Diagnosis IMO Codes Diagnosis Note [id number] NADEEN DOUGHERTY PA-C [facility] [address] [address] 10/16/2024 13:10:54 10/16/2024 13:27:43 Ear and auditory finding 960290424 Z01.10 983337 History of ear disorder 723730577 Z78.9 94991269 Health Concerns Section Related Observation LastModified by Organization Detai ls LastModified Time None Recorded Concern Status LastModified by Organization Details LastModified Time None Recorded Payers Encounter Date Sequence Insurance Name Policy Number Policy Watts Covered Member ID Watts Member ID Guarantor Name 10/16/2024 1 [facility] - DOS ON OR AFTER 2022 - [employer] (MEDICARE REPLACEMENT/ADV ANTAGE - HMO) Kaya Mckinley [id number] Kaya Mckinley Notes Date Note Type Note Provider Name and Address Organization Details Recorded Time 10/16/2024 text/html ROS as noted in the HPI 74 year old female presents for cerumen removal. Patient was last seen in 11/2021 for bilateral cerumen debridement. Patient usually gets her ears cleaned once yearly by an ENT in [place], but that provider has retired. The patient felt her ears become blocked 3 months ago and she presented to an urgent care and had both of her ears cleaned via lavage. She believes her ears are clear today but wanted to reestablish care. Denies hearing loss, otalgia, otorrhea, dizziness, and tinnitus. HARSHA RAMIRES MD [address] [place] [address], [phone], [place] - [facility] 10/19/2024 08:45:53 OBGyn Episode No OBEpisode recorded.
--- OUTSIDE RECORDS SUMMARY | 2025-01-07 10:15 | XMS_ITS | Encounter Summary ---
Author Organization [employer] Address [address] [place] [address] [address] [place] [address] Care Team Providers Care Ambulance Attendant Name Role Phone Unavailable Primary Care Provider Unavailabl e Reason for Visit * Reason Comments Med Refill Encounter Details Date Type Department Care Team ([facility] st Contact Info) Description 04/24/2022 Refill [facility] [address] [place] [address] Candie Carmen MD [address] [place] [address] Social History Tobacco Use Types Packs/Day Years [...]
--- OUTSIDE RECORDS SUMMARY | 2025-01-07 10:15 | XMS_ITS | Clinical Summary ---
Author Organization [facility] [address] [facility] Address [address] [place] [address] Phone Care Team Providers Care Lab Courier Name Role Phone Vanessa Guerrero MD Primary Care Provider [phone] Allergies Active Allergy Reactions Criticality Noted Date Comments Oxycodone 11/01/2016 itchy Oxycodone-Acetaminophen 09/23/2021 Medications diphenhydrAMINE (BENADRYL) 25 mg tablet Take 1 Tablet by mouth at bedtime. Active atorvastatin (LIPITOR) 40 mg tablet Take 1 Tablet by mouth at bedtime. 07/16/19 24 Active blood-glucose meter kit 1 Each [...] FSG twice a day 06/01/19 23 Active ONETOUCH DELICA LANCETS MISC Use to [...] as: Meloxicam 15 MG Oral Tablet Active albuterol 2.5 mg /3 mL (0.083 [...] mg total) by mouth. 02/10/20 14 Active budesonide-formo teroL (SYMBICORT) 160-4.5 mcg/actuation inhaler Inhale 2 puffs by mouth 2 (two) times a day. 03/03/19 22 Active amLODIPine (NORVASC) 5 mg tablet Take 1 tablet (5 mg total) by mouth daily. 09/06/19 22 Active budesonide-formo teroL (Symbicort) 80-4.5 mcg/actuation inhaler Inhale 2 puffs [...] morning. 01/05/20 22 Active omeprazole 20 mg tablet,disintegr at, delay rel Take by mouth. A ctive ondansetron (ZOFRAN) 4 mg/5 mL solution TAKE [...] GROIN OR FACE. 03/27/19 24 Active coenzyme [id number] E 100-5 mg-unit capsule Take 200 mg by mouth. Active blood-glucose meter kit 1 each 2 (two) times a day before meals. One touch 1 kit 1 02/15/19 25 Active hydrOXYzine HCL (ATARAX) 10 mg tabletIndication s:Pruritus, unspecified TAKE 1 TABLET BY MOUTH THREE TIMES A DAY 90 tablet 1 03/31/19 25 Active OneTouch Ultra Test test strip Check sugar 2 times daily 100 strip 3 04/04/19 25 Active lidocaine (XYLOCAINE) 5 % ointmentIndicati ons:Chronic right-sided thoracic back pain Apply pea-sized amount 3 times a day on the back spasm area as needed for pain 35.44 g 3 04/03/19 25 Active valsartan (DIOVAN) 320 mg tabletIndication s:Essential (primary) hypertension TAKE 1 TABLET BY MOUTH EVERY DAY 90 tablet 1 05/07/19 25 Active tiZANidine (ZANAFLEX) 4 mg tablet TAKE 1 TABLET (4 MG TOTAL) BY MOUTH 1 (ONE) TIME EACH DAY IF NEEDED FOR MUSCLE SPASMS. 30 tablet 1 05/29/19 25 Active metFORMIN (GLUCOPHAGE) 500 mg tabletIndication s:Type 2 diabetes mellitus with other specified complication (CMS/HCC V24, CMS/HCC V28) TAKE 1 TABLET BY MOUTH TWICE A DAY WITH FOOD 180 tablet 4 06/11/19 25 Active diclofenac (VOLTAREN) 1 % topical gel Apply 2 g topically 2 (two) times a day. 100 g 11 07/30/19 25 Active bisacodyL (DULCOLAX) 5 mg EC tablet Take 2 tablets by mouth right before beginning bowel prep. See instructions provided by the office 2 tablet 09/20/19 25 Active polyethylene glycol (Golytely) 236-22.74-6.74 -5.86 gram solution Take 4L by mouth once for one dose. May substitue any PEG. Starting at 2PM the day before your procedure drink 1 8oz glasses at your own pace until you complete half of the gallon. Finish 2nd half of the gallon at 8PM. 4000 mL 09/20/19 25 Active donepeziL (ARICEPT) 10 mg tablet Take 1 tablet (10 mg total) by mouth at bedtime. Active memantine (NAMENDA) 5 mg tablet Take 1 tablet (5 mg total) by mouth 2 (two) times a day. 10/01/19 25 Active gabapentin (NEURONTIN) 300 mg capsuleIndicatio ns:Fibromyalgia, Intercostal neuropathy Take 1 capsule (300 mg total) by mouth at bedtime. 90 capsule 3 12/02/19 25 Active ibuprofen (ADVIL,MOTRIN) 600 mg tablet Take 1 tablet (600 mg total) by mouth every 8 (eight) hours if needed for mild pain. 90 tablet 2 12/02/19 25 Active senna-docusate (PERICOLACE) 8.6-50 mg per tabletIndication s:Constipation, unspecified constipation type Take 2 tablets by mouth 1 (one) time each day. 60 each 11 12/27/19 24 025 polycarbophil (FiberCon) 625 mg tabletIndication s:Constipation, unspecified constipation type Take 1 tablet (625 mg total) by mouth 1 (one) time each day. 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 Chest pain 05/04/2021 Overview (11/16/2023): [facility] ER 03/14/21-03/15/21 Last Assessment & Plan: [...] right 02/04/2019 DM2 (diabetes mellitus, type 2) ([facility] V24, CM /[facility] V28) 05/26/2015 Radiculitis, cervical 07/03/2012 Diverticulosis of [...] Overview (11/16/2023): IMO update Knee pain 01/05/2010 Immunizations Immunization Administration Dates Next Due Influenza Quadravalent, 0.5m [...] Surgery Date Site/Laterality Comments BREAST REDUCTION PROCEDURE: LA BREAST REDUCTION KNEE SURGERY PROCEDURE: HISTORICAL KNEE [...] 2, uncontrolled DM2 (diabetes mellitus, type 2) ([facility] V24, [facility] V28) 05/26/2015 DX:DM2 (diabetes mellitus, type 2) ([facility]) Mild intermittent asthma 02/13/2019 DX:Mild intermittent asthma [...] drink = 0.6 oz pur e alcohol) Interpersonal Safety Answer Date Record ed Physical Abuse Unrecognized value 10/03/2024 Verbal Abuse Unrecognized value 10/03/2024 Comments Unknown Sex and Gender Information Value Date Recorded Sex Assigned at Female 12/12/2023 3:18 PM EDT Legal Sex Female 3:57 AM EST Gender Identity Female 12/12/2023 3:18 PM EDT Sexual Orientation Straight 12/12/2023 3: 18 PM EDT Obstetrics History Last Filed Vital Signs Vital Sign Reading Time Taken Comments Blood Pressure 133/71 10/03/2024 11:35 AM EDT Pulse 67 10/03/2024 11:35 AM EDT Temperature 36 C (96.8 F) 10/03/2024 11:15 AM EDT Respiratory Rate 14 10/03/2024 11:35 AM EDT Oxygen Saturation 100% 10/03/2024 11:35 AM EDT Inhaled Oxygen Concentration - - Weight 63.5 kg (140 lb) 10/03/2024 10:24 AM EDT Height 152.4 cm (5') 10/03/2024 10:24 AM EDT Body Mass Index 27.34 10/03/2024 10:24 AM EDT Plan of Treatment Upcoming Encounters Date Type Department Care Team (Late st Contact Info) Description 05/13/2025 10:40 AM EDT Office Visit Gastroenterology - 299 [facility] [address] [phone] Drew Juan MD 299 [facility] [address] [place] [address] 06/09/2025 9:00 AM EDT Office Visit Orthopedic Surgery - [place] [address] [phone] Abraham Auguste DPM 175 [facility] [address] [place] [address] Health Maintenance Due Date Last Done Comments Diabetes: Annual Retina Eye Exam 1960 RSV Immunization Adult Patients (1 - Risk 50-74 years 1-dose series) 2000 Zoster Vaccines (1 of 2) 2000 Social Influencers of Health Screening 01/21/2022 Diabetes: Annual Urine Albumin-Creatinine Ratio (uACR) 06/01/2023 05/31/2022 Medicare Annual Wellness Visit 08/31/2023 08/30/2022 Depression Screening 02/13/2024 Diabetes: Annual Foot Exam 03/21/2024 03/21/2023 Diabetes: Blood Sugar Control Test (HGBA1C) 05/08/2024 11/09/2023, 11/09/2023, 06/15/2023 COVID-19 Vaccine ( season) 2025 11/03/2024, 02/23/2021, 05/06/2020, Additional history exists Breast Cancer Screening 08/08/2025 08/09/19, 07/19/2022, 2021, Additional history exists Diabetes: Annual GFR (Glomerular Filtration Rate) 09/14/2025 09/14/2024, 11/09/2023, 11/09/2023, Additional history exists Hypertension/CHF/CAD Annual BMP Blood Test 09/14/2025 09/14/2024, 11/09/2023, 11/09/2023, Additional history exists Falls Risk Assessment 10/03/2025 10/03/2024 Colorectal Cancer Screening: Colonoscopy 10/04/2027 10/03/2024, 09/08/2019 Cholesterol Screening (Lipid Panel) 11/08/2028 11/09/2023, 11/09/2023, 06/15/2023, Additional history exists DTaP,Tdap,and Td Vaccines (2 - Td or Tdap) 01/21/2029 01/21/2019 Osteoporosis Screening (Bone Density Screening) 08/08/2033 08/09/2023, 08/09/2023, 01/25/2021 Hepatitis C Screening Completed 01/01/2016 Pneumococcal Vaccine: 50+ Years Completed 12/06/2016, 10/06/2015 Influenza Vaccine Completed 11/03/2024, , 10/22/2022, Additional history exists HIB Vaccines Aged Out [...] Procedure Name Priority Date/Time Associated Diagnosis Comments COLONOSCOPY Routine 10/03/2024 11:14 AM EDT Hx of colonic polyps COMPREHENSIVE METABOLIC PANEL STAT 09/14/2024 12:09 PM EDT HEMOGLOBIN A1C Routine 11/09/2023 LIPID PANEL Routine 11/09/2023 [facility] SCREENING DIGITAL Routine 08/09/2023 10:10 AM EDT Encounter for screening mammogram for malignant neoplasm of breast [facility] DEXA AXIAL SKELETON Routine 08/09/2023 9:58 AM EDT Other specified disorders of bone density and structure, other site DIABETES FOOT EXAM Routine 03/21/2023 URINE ALBUMIN CREATININE RATIO Routine 05/31/2022 HEPATITIS C SCREENING Routine 01/01/2016 from Last 3 Months or Most Recently Relevant to Health Maintenance Results * COLONOSCOPY Anesthesia - MAC; [facility] ENDOSCOPY (10/03/2024 11:14 AM EDT) Anatomical Region Laterality Modality Other 10/03/2024 10:5 8 AM EDT Impressions 10/03/2024 11:15 AM EDT - One 9 mm polyp in the cecum, removed with a cold snare. Resected and retrieved. - Diverticulosis in the sigmoid colon. - The entire examined colon is normal on direct and retroflexion views. Recommendation: - Await pathology results. - Repeat colonoscopy in 3 years for surveillance. Narrative 10/03/2024 11:[address] [facility] GI Patient Name: Samantha Mckinley Procedure Date: 10/03/2024 10:58 AM Date of : 1950 Age: 74 Room: ROOM 14 Gender: Female Note Status: Finalized Attending MD: Drew Juan MD, Procedure Date No Time: 10/03/2024 Procedure: Colonoscopy Indications: High risk colon cancer surveillance: Personal history of colonic polyps Providers: Drew Juan MD Referring MD: Drew Juan MD Medicines: Propofol per Anesthesia Complications: No immediate complications. Estimated Blood Loss: Estimated blood loss was minimal. Procedure: Pre-Anesthesia Assessment: - ASA Grade Assessment: II - A patient with mild systemic disease. After I obtained informed consent, the scope was passed under direct vision. Throughout the procedure, the patient's blood pressure, pulse, and oxygen saturations were monitored continuously.The Colonoscope was introduced through the anus and advanced to the cecum, identified by appendiceal orifice and ileocecal valve. The colonoscopy was performed without difficulty. The patient tolerated the procedure well. The quality of the bowel preparation was good. Findings: The perianal and digital rectal examinations were normal. A 9 mm polyp was found in the cecum. The polyp was sessile. The polyp was removed with a cold snare. Resection and retrieval were complete. Multiple diverticula were found in the sigmoid colon. The entire examined colon appeared normal on direct and retroflexion views. Procedure Code(s): --- Professional --- 89008, Colonoscopy, flexible; with removal of tumor(s), polyp(s), or other lesion(s) by snare technique Diagnosis Code(s): --- Professional --- Z86.010, Personal history of colonic polyps K57.30, Diverticulosis of large intestine without perforation or abscess without bleeding D12.0, Benign neoplasm of cecum CPT copyright 2020 [employer]. All rights reserved. The codes documented in this report are preliminary and upon mold filling operator review may be revised to meet current compliance requirements. Drew Juan MD 10/03/2024 11:15:03 AM This report has been signed electronically.Drew Juan MD Number of Addenda: 0 Note Initiated On: 10/03/2024 10:58 AM Scope In: Scope Out: Endoscopy Department at [facility] - [address] [place] [phone] Procedure Note Drew Juan MD - 10/03/2024 [facility] Patient Name: Samantha Mckinley Procedure Date: 10/03/2024 10:58 AM Date of : 1950 Age: 74 Room: ROOM 14 Gender: Female Note Status: Finalized Attending MD: Drew Juan MD, Procedure Date No Time: 10/03/2024 Procedure: Colonoscopy Indications: High risk colon cancer surveillance: Personalhistory of colonic polyps Providers: Drew Juan MD Referring MD: Drew Juan MD Medicines: Propofol per Anesthesia Complications: No immediate complications. Estimated Blood Loss: Estimated blood loss was minimal. Procedure: Pre-Anesthesia Assessment: - ASA Grade Assessment: II - A patient with mild systemic disease. After I obtained informed consent, the scope was passed under direct vision. Throughout theprocedure, the patient's blood pressure, pulse, and oxygen saturations were monitored continuously.The Colonoscope was introduced through the anus and advanced to the cecum, identified by appendiceal orifice and ileocecal valve. The colonoscopy was performed without difficulty. The patient tolerated the procedure well. The quality of the bowel preparation was good. Findings: The perianal and digital rectal examinations were normal. A 9 mm polyp was found in the cecum. The polyp was sessile. The polyp was removed with a cold snare. Resection and retrieval were complete. Multiple diverticula were found in the sigmoidcolon. The entire examined colon appeared normal on direct and retroflexion views. Procedure Code(s): --- Professional --- 96733, Colonoscopy, flexible; with removal of tumor(s), polyp(s), or other lesion(s) by snare technique Diagnosis Code(s): --- Professional --- Z86.010, Personal history of colonic polyps K57.30, Diverticulosis of large intestine without perforation or abscess without bleeding D12.0, Benign neoplasm of cecum CPT copyright 2020 [employer]. All rights reserved. The codes documented in this report are preliminary and upon mold filling operator reviewmay be revised to meet current compliance requirements. Drew Juan MD 10/03/2024 11:15:03 AM This report has been signed electronically.Drew Juan MD Number of Addenda: 0 Note Initiated On: 10/03/2024 10:58 AM Scope In: Scope Out: Endoscopy Department at [facility] - [address] [place] [phone] IMPRESSION: - One 9 mm polyp in the cecum, removed with a cold snare. Resected and retrieved. - Diverticulosis in the sigmoid colon. - The entire examined colon is normal on direct and retroflexion views. Recommendation: - Await pathology results. - Repeat colonoscopy in 3 years for surveillance. Drew Juan MD GI~PROCEDURE ORDERABLES Fin al Result * (ABNORMAL) Comprehensive metabolic panel (09/14/2024 12:09 PM EDT) Sodium 139 133 - 145 mmol/L LAB CHEMISTRY METHOD 09/14/2024 12:56 PM [facility] Potassium 3.7 3.5 - 5.5 mmol/L LAB CHEMISTRY METHOD 09/14/2024 12:56 PM [facility] Chloride 107 96 - 110 mmol/L LAB CHEMISTRY METHOD 09/14/2024 12:56 PM [facility] CO2 28 21 - 32 mmol/L LAB CHEMISTRY METHOD 09/14/2024 12:56 PM [facility] Anion Gap 4 3 - 11 LAB CHEMISTRY METHOD 09/14/2024 12:56 PM [facility] Glucose 107(H) 70 - 100 mg/dL LAB CHEMISTRY METHOD 09/14/2024 12:56 PM [facility] BUN 21 5 - 25 mg/dL LAB CHEMISTRY METHOD 09/14/2024 12:56 PM [facility] Creatinine 0.71 0.50 - 1.10 mg/dL LAB CHEMISTRY METHOD 09/14/2024 12:56 PM [facility] eGFR 89 >=60 mL/min/1. 73m2 LAB CHEMISTRY METHOD 09/14/2024 12:56 PM [facility] Comment:Calculation based on the Chronic Kidney Disease Epidemiology Collaboration (CKD-EPI) equation refit without adjustment for race. BUN/Creatinine Ratio 29.6 LAB CHEMISTRY METHOD 09/14/2024 12:56 PM [facility] Calcium 9.4 8.5 - 10.5 mg/dL LAB CHEMISTRY METHOD 09/14/2024 12:56 PM [facility] AST (SGOT) 18 10 - 42 unit/L LAB CHEMISTRY METHOD 09/14/2024 12:56 PM [facility] ALT (SGPT) 28 10 - 60 unit/L LAB CHEMISTRY METHOD 09/14/2024 12:56 PM [facility] Alkaline Phosphatase 92 42 - 121 unit/L LAB CHEMISTRY METHOD 09/14/2024 12:56 PM [facility] Total Protein 6.7 6.0 - 8.0 g/dL LAB CHEMISTRY METHOD 09/14/2024 12:56 PM [facility] Albumin 3.5 3.2 - 5.0 g/dL LAB CHEMISTRY METHOD 09/14/2024 12:56 PM [facility] Total Bilirubin 0.4 0.0 - 1.4 mg/dL LAB CHEMISTRY METHOD 09/14/2024 12:56 PM [facility] Blood Venous blood specimen / Unknown Venipuncture / Unknown 09/14/2024 12:09 PM EDT 09/14/2024 12:28 PM EDT us Sotero Izquierdo MD LAB BLOOD ORDERABLES Final Resu lt [facility] [address] [place] [address], * (ABNORMAL) Hemoglobin A1c (11/09/2023) Hemoglobin A1C [...] LAB BLOOD ORDERABLES Madhavi l Result * JANET SCREENING DIGITAL (08/09/2023 10:10 AM EDT) Anatomical Region Laterality Modality Mammography 08/09/2023 8:24 AM EDT Narrative 08/09/2023 10:10 AM EDT [facility] Diagnostic Imaging Department [address] [place] [address] Patient: SAMANTHA MCKINLEY /Age/Sex: 1950 - 73 - F Unit#: [id number] Location/Status: SPDIMAM/REG CLI Mnemonic/Ordering Site: [facility] Ordering Physician: CRUZ HUYNH MD [facility] Screening Digital - 08/09/23 - 0840 Report Status:Signed EXAM: [facility] Screening Digital EXAM DATE AND TIME: 08/09/2023 8:41 AM HISTORY: Screening. Prior left breast biopsy and bilateral reduction mammoplasty. COMPARISON: 07/19/22, 03/02/21, 08/21/18 TECHNIQUE: Bilateral digital breast tomosynthesis was performed in the CC and MLO projections. Computer aided detection with Calvin 3D 3.1 was employed. TISSUE DENSITY: a. [...] Procedure Note Cyn Baptiste MD - 11/28/2023 [facility] Diagnostic Imaging Department [address] [place] [id number] Patient: DOMINICKSAMANTHAO.B./Age/Sex: 1950 - 73 - F Unit#: [id number] [facility] Mn[facility]onic/Ordering Site: [facility]IGUT/SP[facility]AM Ordering Physician: CRUZ HUYNH MD [facility] Screening Digital - 08/09/23 - 0840 Report Status:Signed EXAM: [facility] Screening Digital EXAM DATE AND TIME: 08/09/2023 8:41 AM HISTORY: Screening. Prior left breast biopsy and bilateral reduction mammoplasty. COMPARISON: 07/19/22, 03/02/21, 08/21/18 TECHNIQUE: Bilateral digital breast tomosynthesis was performed in the CCand MLO projections. Computer aided detection with Calvin 3D 3.1was employed. TISSUE DENSITY: a. The [...] Date/Time: 08/09/23 1009 Sign date/Time: 08/09/23 1010 Cruz Huynh MD IMG BI PROCEDURES Final Result * [facility] DEXA AXIAL SKELETON (08/09/2023 9:58 AM EDT) Anatomical Region Laterality Modality Mammography 08/09/2023 8:24 AM EDT Narrative 08/09/2023 9:58 AM EDT [facility] Diagnostic Imaging Department [address] [place] [id number] Patient: SAMANTHA MCKINLEY /Age/Sex: 1950 - 73 - F Unit#: [id number] Location/Status: SPDIMAM/REG CLI Mnemonic/Ordering Site: [facility]AMDEXAAX/SP[facility]AM Ordering Physician: CRUZ HUYNH MD [facility] Dexa Axial Skeleton - 08/09/23 - 09 Report Status:Signed HISTORY: The patient is a [...] probability of hip fracture of 2.5%. Code 71830 Dictating Physician: NOLAN HERRERA MD Electronically Signed by: NOLAN HERRERA MD Dic Date/Time: 08/09/2356 Sign date/Time: 08/09/2358 Procedure Note Nolan Herrera MD - 11/28/2023 [facility] Diagnostic Imaging Department [address] [place] [address] Patient: SAMANTHA MCKINLEY./Age/Sex: 1950 - 73 - F Unit#: [id number] Location/Status: [facility] CLI Mnemonic/[facility] Ordering Physician: CRUZ HUYNH MD [facility] Dexa Axial Skeleton - 08/09/23 - 910 [...] density of the femurs bilaterally is 0.876 gm/ns5gioux is 87% of that of young normals [...] probability of hip fracture of 2.5%. Code 42568 Dictating Physician: NOLAN HERRERA MD Electronically Signed by: NOLAN HERRERA MD Dic Date/Time: 08/09/23 0956 Sign date/Time: 08/09/2358 Result [facility] Curz Huynh MD IMG BI PROCEDURES Final Result * Diabetes Foot Exam (03/21/2023) [facility] Diabetes: Annual Foot Exam abstracted Result [facility] Sarah [employer] Final Result * Urine Albumin Creatinine Ratio (05/31/2022) [facility] Urine Albumin Creatinine Ratio abstracted Result [facility] Provider HEALTH MAINTENANCE Final Result * Hepatitis C Screening (01/01/2016) [facility] Hepatitis C Screening abstracted Result [facility] [employer] Final Result from Last 3 Months or Most Recently Relevant to Health Maintenance Insurance [employer] MEDICARE Member Subscriber Plan / Payer (Ef fective 2023-Present) Name:Samantha Mckinley Relation to Subscriber:Self Name:Samantha Mckinley Payer ID:[id number] Group ID:[id number] Type:Not on file Address: [place] [address] [address] [id number] Care Teams Lab Courier Relationship Specialty Start Date End Date Vanessa Guerrero MD [address] [place] [address] PCP - General Internal Medicine 10/03/24
== END 2025-01-07 11:18 | disposition home or self-care (01) ==
LOC: HO.HSM 09:17
PROVIDERS: PCP Internal Medicine; Visit Provider Registered Nurse
DX: G31.84 Mild cognitive impairment of uncertain or unknown etiology (principal)
CPT/HCPCS: 99214

== ENCOUNTER → 2025-01-07 09:17 | Outpatient (BNVA) | payer OTHER, SELFPAY | PROVIDERS: PCP Internal Medicine; Visit Provider Registered Nurse | DX: G31.84 Mild cognitive impairment of uncertain or unknown etiology (principal); Z79.899 Other long term (current) drug therapy | CPT/HCPCS: 99212 ==